=== PATIENT | female | born 1955 | race Caucasian/White ===

== ENCOUNTER → 2017-03-23 07:23 | Outpatient (CLI) | payer OTHER, SELFPAY ==
--- NOTE | 2017-03-23 07:26 | CT_ITS ---
STUDY: CT ABDOMEN AND PELVIS WITHOUT CONTRAST REASON FOR EXAM: Female, 61 years old. History of right hydronephrosis with hematuria and right upper quadrant pain. RADIATION DOSAGE (If Supplied By Facility): CTDIvol = ( 15.57 ) mGy, DLP = ( 770.01 ) mGycm TECHNIQUE: Transaxial images were obtained from the dome of the diaphragm to the symphysis pubis without oral contrast, and without intravenous contrast. Sagittal and coronal images were reconstructed. Individualized dose optimization techniques were used for this CT. COMPARISON: Comparison is made with prior study dated February 25, 2007. FINDINGS: Minimal increased linear markings in the anterior aspect of the right middle lobe suggestive of linear scarring. The visualized portions of the heart are within normal limits. Normal liver. The cyst seen in the right lobe of liver on ultrasound is not well seen on the unenhanced scan. Normal gallbladder and extrahepatic biliary system. Normal spleen. Normal pancreas. Normal bilateral adrenal glands. There are multiple right intrarenal calculi. The largest is in the lower pole and it measures 6.2 mm. Mild degree of right hydronephrosis. Normal left kidney. Normal visualized stomach. Normal small intestine. There are multiple colonic diverticula consistent with diverticulosis. The patient is status post appendectomy. There is scattered atherosclerotic calcification of the abdominal aorta, without a demonstrated aneurysm. Normal inferior vena cava. Normal retroperitoneum. Normal urinary bladder. Normal abdominal wall. There are degenerative changes of the visualized lumbar spine. Grade 1 anterior listhesis of L4 on L5. CT/Abdomen/Pelvis without Cont IMPRESSION: Nonobstructive right intrarenal calculi. Mild right hydronephrosis. Electronically Signed: Angelo Kwong MD at 10:35 EST Tel [phone], Service support ,
== END ==
PROVIDERS: Family Provider Internal Medicine; PCP Internal Medicine; Visit Provider Nurse Practitioner Adult Health
DX: N13.30 Unspecified hydronephrosis (principal); Z87.19 Personal history of other diseases of the digestive system
CPT/HCPCS: 74176

== ENCOUNTER 2017-04-03 08:41 | Day surgery (SDC) | payer OTHER, SELFPAY ==
[2017-04-03 09:05] VITALS: BP 156/92; PULSE 89; RESP 20; TEMP 37.3; O2SAT 97; BMI 31.0
--- NOTE | 2017-04-03 11:28 | PCM.DC.URO ---
Discharge Diet: Light diet - advance as tolerated Discharge Activity: Return to Normal Activity Suture Line Care: Avoid Pulling/Pushing, Avoid Pinching/Bending Allergies/Adverse Reactions: Allergies adhesive tape Allergy (Verified 03/27/17 09:12) Rash diphenhydramine [From Benadryl] Allergy (Verified 03/27/17 09:22) Angioedema famotidine [From Pepcid] Allergy (Verified 03/27/17 09:22) Anaphylaxis Penicillins Allergy (Verified 03/27/17 09:12) Rash pineapple Allergy (Verified 03/27/17 09:12) Hives ranitidine [From Zantac] Allergy (Verified 03/27/17 09:22) Anaphylaxis sucralfate [From Carafate] Allergy (Verified 03/27/17 09:22) Anaphylaxis hydrocodone Adverse Reaction (Verified 03/27/17 09:12) Other CRIES, EMOTIONAL hydromorphone [From Dilaudid] Adverse Reaction (Verified 03/27/17 09:12) Vomiting Medications to take at Discharge Ibuprofen [Motrin] 400 mg PO DAILY 03/27/17 Ibuprofen [Motrin] 400 mg PO Q4H PRN PRN #14 tab 04/03/17 The following prescriptions were given: Ibuprofen [Motrin] 400 mg PO Q4H PRN PRN #14 tab PRN Reason: Pain Primary Care Physician: Yamile Paul DO [Primary Care Provider] - Please Follow Up With: Chidi Oropeza MD When: please call to make an appointment.
--- NOTE | 2017-04-03 12:31 | PCM.OPRPT ---
Problem List (1) Right kidney stone Status: Acute Report of Operation Date of Procedure: 04/03/17 Pre-Operative Diagnosis: Right kidney stone Post-Operative Diagnosis: Same Surgery/Procedure Performed:: Right extracorporeal shockwave lithotripsy Description of Surgical Findings:: 61-year-old female taken back to the operating room at the smooth induction of general anesthesia she was placed supine on the operating room table we then localize the stone in the F2 focal point of the machine and proceeded with shockwave lithotripsy. Patient was given a total of 3000 shockwaves power from 3-5 and the stone was monitored during the entire treatment and in the beginning of the treatment stone broke up and at the end of the treatment the stone broke up fairly well. No stent was placed. Patient's anesthetic was reversed and she is taken back to the PACU in good condition. Type of Anesthesia:: General Drains: none - Admit VTE Documentation VTE Present on Admission: No VTE Mechan Device Prophylaxis: SCD's VTE Pharm Prophylaxis ordered?: No Reason prophylaxis not ordered:: Treatment Not Indicated
[2017-04-03 12:41] VITALS: BP 132/81; BP 156/92; PULSE 87; RESP 16; TEMP 36.1; O2SAT 94
[2017-04-03 13:09] VITALS: BP 151/85; BP 156/92; PULSE 75; RESP 16; TEMP 36.1; O2SAT 97
[2017-04-03 14:19] VITALS: BP 156/92
== END 2017-04-03 14:22 | disposition home or self-care (01) ==
LOC: SDC 08:42 → AC 08:44
PROVIDERS: Family Provider Internal Medicine; PCP Internal Medicine; Visit Provider Urology
PROC: (CPT 50590; principal; 2017-04-03 10:30)
DX: N13.2 Hydronephrosis with renal and ureteral calculous obstruction (principal); I10 Essential (primary) hypertension; G47.30 Sleep apnea, unspecified; Z78.0 Asymptomatic menopausal state; Z87.442 Personal history of urinary calculi; Z87.440 Personal history of urinary (tract) infections; Z87.19 Personal history of other diseases of the digestive system; Z98.51 Tubal ligation status
CPT/HCPCS: 00873; 50590; J7120; J2405

== ENCOUNTER → 2017-04-21 08:57 | Outpatient (CLI) | payer OTHER, SELFPAY ==
--- NOTE | 2017-04-21 09:01 | RAD_ITS ---
STUDY: X-RAY - ABDOMEN/PELVIS REASON FOR EXAM: Female, 62 years old. Right sided kidney stones. Recent lithotripsy. TECHNIQUE: Two AP supine views of the abdomen and pelvis. COMPARISON: Comparison is made with prior study dated June 27, 2014. FINDINGS: Normal visualized lung bases. There is a moderate amount of colonic fecal material. Fragmented calculus is seen in the lower pole calyx of the right kidney. There are calcified phleboliths in the pelvis. Normal visualized osseous structures. RAD/Abdomen Single View IMPRESSION: The previously seen calculus in the lower pole of the right kidney is fragmented at this time. Electronically Signed: Angelo Kwong MD at 15:43 EST Tel [phone], Service support ,
[2017-04-30 12:08] LABS: Ca Oxalate, Monohydrate 95 % (.)
== END ==
PROVIDERS: Family Provider Internal Medicine; PCP Internal Medicine; Visit Provider Urology
DX: N20.2 Calculus of kidney with calculus of ureter (principal); R30.0 Dysuria
CPT/HCPCS: 74018; 82360

== ENCOUNTER → 2017-12-25 10:10 | Outpatient (CLI) | payer OTHER, SELFPAY ==
--- NOTE | 2017-12-25 10:25 | RAD_ITS ---
STUDY: X-RAY - ABDOMEN/PELVIS REASON FOR EXAM: Female, 62 years old. Right flank pain TECHNIQUE: 2 views COMPARISON: None. FINDINGS: Normal visualized lung bases. There is an unremarkable bowel gas pattern. There is no demonstrated free abdominal air. There are numerous small calcific densities over the right renal status suspicious for calculi. Probable phleboliths in the pelvis. Normal soft tissue structures. Normal visualized osseous structures. RAD/Abdomen Single View IMPRESSION: Possible calculi in the right kidney. Please correlate with ultrasound or CT if needed. Electronically Signed: Remberto Avendano DO at 9:17 EST Tel [phone], Service support ,
== END ==
PROVIDERS: Family Provider Internal Medicine; PCP Internal Medicine; Referring Provider Urology; Visit Provider Urology
DX: N20.0 Calculus of kidney (principal)
CPT/HCPCS: 74018

== ENCOUNTER → 2018-09-30 12:51 | Outpatient (CLI) | payer OTHER, SELFPAY ==
--- NOTE | 2018-09-30 13:00 | RAD_ITS ---
STUDY: X-RAY - ABDOMEN/PELVIS REASON FOR EXAM: Female, 63 years old. Dysuria. TECHNIQUE: Single AP view of the abdomen / pelvis. COMPARISON: None. FINDINGS: Normal visualized lung bases. There is an unremarkable bowel gas pattern. There is no demonstrated free abdominal air. The visualized liver, spleen and kidneys are grossly normal in size and morphology. There are calcified phleboliths in the pelvis. Normal visualized osseous structures. RAD/Abdomen Single View IMPRESSION: Normal x-ray examination of the abdomen and pelvis. Electronically Signed: Gianfranco Dang MD at 13:25 EDT , Service support ,
== END ==
PROVIDERS: Family Provider Internal Medicine; PCP Internal Medicine; Referring Provider Urology; Visit Provider Urology
DX: N20.0 Calculus of kidney (principal)
CPT/HCPCS: 74018

== ENCOUNTER → 2018-10-19 11:14 | Outpatient (CLI) | payer OTHER, SELFPAY | PROVIDERS: Family Provider Internal Medicine; PCP Internal Medicine; Referring Provider Nurse Practitioner Adult Health; Visit Provider Nurse Practitioner Adult Health | DX: R30.0 Dysuria (principal) | CPT/HCPCS: 87086; 87088; 87186 ==

== ENCOUNTER → 2019-08-16 14:03 | Outpatient (CLI) | payer OTHER, SELFPAY | PROVIDERS: PCP Internal Medicine; Referring Provider Nurse Practitioner Adult Health; Visit Provider Nurse Practitioner Adult Health | DX: N39.0 Urinary tract infection, site not specified (principal) | CPT/HCPCS: 87086; 87088 ==

== ENCOUNTER 2021-11-06 03:43 | Emergency (ER) | payer OTHER, SELFPAY ==
[2021-11-06 03:43] VITALS: BP 172/101; PULSE 79; RESP 18; TEMP 36.4; O2SAT 97; BMI 35.5
--- NOTE | 2021-11-06 03:46 | CT_ITS ---
EXAM: CT ABDOMEN AND PELVIS WITHOUT INTRAVENOUS CONTRAST CLINICAL INDICATION: Kidney Stone TECHNIQUE: Helically acquired images were obtained of the abdomen and pelvis without intravenous contrast. This CT exam was performed using one or more of the following dose reduction techniques: automated exposure control, adjustment of the mA and/or kV according to patient size, and/or use of iterative reconstruction technique. This report was created using [employer] report generation technology. RADIATION DOSE: Total DLP: 956.13 mGy-cm. COMPARISON: CT of 03/23/2017. FINDINGS: LOWER THORAX: Minimal linear scarring at the lung bases. No pleural effusion. No coronary artery calcification is visualized. BONES: Lower thoracic and lumbar degenerative disc disease. Severe degenerative disc space narrowing with vacuum disc phenomenon, mild endplate sclerosis and marginal osteophytes at L5/S1. Extensive lumbar facet arthritis with slight anterolisthesis of L4 on L5. Thecal sac is effaced with a triangular configuration, measuring about 6 mm in AP diameter, at L4/5 due to the anterolisthesis, annular bulging, facet hypertrophy and ligamentum flavum calcification. Inferior neural foramina are narrowed bilaterally at L4/5 and L5/S1 by broad-based annular bulging, facet hypertrophy and posterolateral osteophytes. ABDOMEN: LIVER: Liver demonstrates fatty infiltration with minimal focal fatty sparing near the gallbladder. Right hepatic lobe measures 17.2 cm in cephalocaudal dimension. GALLBLADDER AND BILE DUCTS: Unremarkable. No calcified gallstones. No gallbladder distention or wall edema. No intra- or extrahepatic biliary ductal dilation. PANCREAS: Unremarkable. No focal cystic mass. SPLEEN: Unremarkable. Normal size without focal cystic or solid mass. ADRENALS: Unremarkable. No nodules. KIDNEYS AND URETERS: Interval development of moderately severe right-sided pelvocaliectasis; moderate right hydroureter is also present, secondary to a 2 mm stone which lies within the distal ureter at the UVJ. A cluster of multiple small calcifications again noted within the dilated right renal lower pole collecting system. The left kidney is unremarkable. No left renal calculi or left-sided hydronephrosis. STOMACH AND BOWEL: Numerous sigmoid diverticula are present without evidence for acute diverticulitis. No distended small bowel loops. Stomach is decompressed. No periduodenal inflammatory changes. PELVIS: APPENDIX: Not well seen. No evidence of acute appendicitis. BLADDER: Urinary bladder is nearly empty. REPRODUCTIVE: Normal size uterus. No adnexal mass. ABDOMEN and PELVIS: INTRAPERITONEAL SPACE: Unremarkable. No ascites or other fluid collection. No free air. SOFT TISSUES: Small fat filled umbilical hernia. VASCULATURE: Minimally calcific abdominal aorta. Abdominal aorta is non-dilated. LYMPH NODES: Unremarkable. No enlarged lymph nodes. CT/Abdomen/Pelvis without Cont IMPRESSION: Moderately severe right hydronephrosis due to a 2 mm stone within the distal ureter at the UVJ. Mildly enlarged and fatty liver. Sigmoid diverticulosis without evidence for acute diverticulitis. Electronically Signed: Mathieu Jimenez MD at 4:40 EDT ,
--- NOTE | 2021-11-06 03:51 | EDS_ITS ---
HPI History of Present Illness Chief Complaint: Flank Pain Detail of Chief Complaint: Right flank pain Informant: patient Onset/Context/Timing Onset: Today Current Severity: Moderate Maximum Severity: Severe Narrative Narrative: Patient present secondary to right flank pain that woke her from sleep at 2 AM this morning. She does have a history of kidney stones with similar pain. She has not yet taken anything for pain. She has required lithotripsy in the past for her stones. [facility] Medical History Kidney stones Home Medications ibuprofen 800 mg tablet 800 mg PO Q8H PRN pain #10 tabs 11/06/21 [Rx Last Taken Unknown] ondansetron 4 mg disintegrating tablet 4 mg PO Q8H PRN nausea and vomiting #10 tabs 11/06/21 [Rx Last Taken Unknown] oxycodone-acetaminophen 5 mg-325 mg tablet (Percocet) 1 tab PO Q6H PRN pain 3 days #10 tabs 11/06/21 [Rx Last Taken Unknown] tamsulosin 0.4 mg capsule (Flomax) 0.4 mg PO DAILY #7 caps 11/06/21 [Rx Last Taken Unknown] Allergy/AdvReac Type Severity Reaction Status Date / Time adhesive tape Allergy Rash Verified 11/06/21 03:43 diphenhydramine Allergy Angioedema Verified 11/06/21 03:43 [From Benadryl] famotidine [From Pepcid] Allergy Anaphylaxis Verified 11/06/21 03:43 Penicillins Allergy Rash Verified 11/06/21 03:43 pineapple Allergy Hives Verified 11/06/21 03:43 ranitidine [From Zantac] Allergy Anaphylaxis Verified 11/06/21 03:43 sucralfate [From Carafate] Allergy Anaphylaxis Verified 11/06/21 03:43 hydrocodone AdvReac Other Verified 11/06/21 03:43 hydromorphone [From Dilaudid] AdvReac Vomiting Verified 11/06/21 03:43 Social History Smoking Status: Never smoker ROS ROS ED Constitutional Constitutional ED: Denies chills or fever(s) Eyes Eyes: Denies change in vision or discharge from eye(s) ENT ENT ED: Denies discharge from eye(s), rhinorrhea or sore throat Cardiovascular Cardiovascular: Denies chest pain or palpitations Respiratory/Chest Respiratory/Chest: Denies cough or dyspnea Gastrointestinal Gastrointestinal: Reports abdominal pain; Denies diarrhea, nausea or vomiting Genitourinary Genitourinary ED: Denies difficulty urinating or dysuria Musculoskeletal Musculoskeletal: Reports back pain; Denies extremity pain Integumentary Denies Abrasions or rash Neurologic Neurologic: Denies headache(s) or weakness Psychiatric Psychiatric: Denies anxiety or depression Allergic/Immunologic Allergic/Immunologic ED: Denies lip swelling or urticaria EXAM Physical Exam Const Vital Signs: 11/06/21 03:43 11/06/21 05:37 Temperature 97.5 F L Temperature Source Temporal Pulse Rate 79 64 Respiratory Rate 18 15 Blood Pressure 172/101 H 174/78 H Blood Pressure Mean 124 110 Pulse Ox 97 98 Oxygen Delivery Method Room Air Room Air Positive well nourished and well developed General Appearance ED: well developed HEENT Reports normocephalic and head/scalp atraumatic Eyes PERRL and EOMs intact bilaterally Neck supple Chest Wall inspection of chest normal and palpation of chest normal Resp normal respiratory effort and clear to auscultation bilaterally Cardio regular rate and regular rhythm GI non-tender Auscultation: hypoactive bowel sounds Palpation: soft Back/Spine General Back: CVA tenderness right Extremity normal to inspection Neuro oriented x3 and no sensory deficits noted Sensorium / Orientation: alert Motor Exam: strength 5/5 throughout Psych mental status grossly normal Skin no rashes or lesions noted MDM MDM MDM Narrative Medical decision making narrative: Patient was given Toradol, Zofran, morphine, IV fluids. Lab work, urinalysis, CT flank obtained. Lab Data Attestation: I reviewed the patient's lab results. Labs: Laboratory Results - last 24 hr 11/06/21 11/06/21 11/06/21 01:40 01:40 01:40 WBC 6.0 RBC 5.08 Hgb 15.5 H Hct 46.7 MCV 91.9 MCH 30.5 MCHC 33.2 RDW Std Deviation 45.2 H RDW Coeff of Betty 13.2 Plt Count 226 MPV 12.3 H Immature Gran % (Auto) 0.200 Neut % (Auto) 40.1 L Lymph % (Auto) 46.1 H [place] % (Auto) 9.7 Eos % (Auto) 2.2 Baso % (Auto) 1.7 H Absolute Neuts (auto) 2.4 Absolute Lymphs (auto) 2.76 Nucleated RBC % 0 Sodium 139 Potassium 4.1 Chloride 105 Carbon Dioxide 25.0 Anion Gap 9 BUN 16 Creatinine 0.94 Estim Creat Clear Calc 57.25 Est GFR (MDRD) Af Amer 77 Est GFR (MDRD) Non-Af 63 BUN/Creatinine Ratio 17.1 Glucose 111 H Calcium 9.3 Urine Color Straw Urine Clarity Clear Urine pH 7.0 Ur Specific [place] 1.010 Urine Protein Negative Urine Glucose (UA) Normal Urine Ketones Negative Urine Occult Blood Negative Urine Nitrite Negative Urine Bilirubin Negative Urine Urobilinogen Normal Ur Leukocyte Esterase 100 H Urine RBC 0 SEEN Urine WBC 5-10 SEEN Ur Squamous Epith Cells 0 SEEN Ur Transition Epith Cell 0-5 SEEN Ur Renal Epithelial Cell 0-5 SEEN Urine Bacteria RARE Urine Mucus 0 SEEN Radiography Diagnostic Testing: Clinical Impression(s) from Imaging Studies Abdomen/Pelvis CT 11/06/21 03:46 IMPRESSION: Moderately severe right hydronephrosis due to a 2 mm stone within the distal ureter at the UVJ. Mildly enlarged and fatty liver. Sigmoid diverticulosis without evidence for acute diverticulitis. Electronically Signed: Mathieu Jimenez MD at 4:40 EDT , Treatment and Re-Evaluation Narrative: Patient's pain did improve but did recur. She was given a second round of pain medication along with a dose of Flomax. CBC and chemistry studies unremarkable. Renal function is normal. Urinalysis reveals 5-10 white cells with no sign of infection. CT scan of the flank reveals moderately severe right hydronephrosis with a 2 mm stone in the distal ureter at the UVJ. At this time patient's pain is improved but she does still have waves of spasm. She will be given presc riptions for Percocet, Zofran, ibuprofen, Flomax. She will follow-up with Dr. Oropeza who she has seen in the past. Return instructions are also provided. Discharge Plan Triage Chief Complaint: Flank Pain ED Provider: Gina Cancino Dx/Rx/DC Orders Clinical Impression: Right kidney stone Instructions: ED Kidney Stone w/ Colic Prescriptions: New ibuprofen 800 mg tablet 800 mg PO Q8H PRN (Reason: pain) Qty: 10 0RF oxycodone-acetaminophen [Percocet] 5-325 mg tablet 1 tab PO Q6H PRN (Reason: pain) 3 Days Qty: 10 0RF ondansetron 4 mg tablet,disintegrating 4 mg PO Q8H PRN (Reason: nausea and vomiting) Qty: 10 0RF tamsulosin [Flomax] 0.4 mg capsule 0.4 mg PO DAILY Qty: 7 0RF Primary Care Provider: Yamile Paul Referrals: Chidi Oropeza MD [Med Staff - Active Staff] - 3-5 Days if not improving Yamile Paul DO [Primary Care Provider] - Disposition Disposition: Home, Self Care
[2021-11-06] MEDS: 0.9% Normal Saline 1,000 ML 250 ML IV (03:59)
[2021-11-06] MEDS: Morphine 4 MG/ML Syringe IV ×2 (03:59→05:32)
[2021-11-06] MEDS: Ondansetron 4 MG/2 ML Vial IV ×2 (03:59→05:31)
[2021-11-06] MEDS: Ketorolac 30 MG/ML Syringe IV (03:59)
[2021-11-06 04:07] LABS: Mucous, Urine 0 SEEN /hpf (<or=2+); Red Blood Cells-Urine 0 SEEN /hpf (0-5); Squamous Epithelial Cells - UA 0 SEEN /hpf (5-10)
[2021-11-06 04:10] LABS: Color, Urine Straw (Yellow); Glucose, Dipstick Normal (Normal); Ketone-Dipstick Negative (Negative); Leukocyte Esterase-Dipstick 100 /ul (Negative); Nitrite-Dipstick Negative (Negative); Occult Blood-Urine Negative /ul (Negative); Protein-Dipstick Negative (Negative); Urine Bilirubin Dipstick Negative (Negative); Urine Clarity Clear (Clear); Urine Urobilinogen Normal (Normal)
[2021-11-06 04:11] LABS: Absolute Lymphocyte Count 2.76 X10^3/uL (0.83-4.51); Absolute Neutrophil Count 2.4 X10^3/uL (2.0-7.7); Basophil% 1.7 % (0-1); Eosinophil# 0.13 X10^3/uL; Eosinophils% 2.2 % (0-5); Hematocrit 46.7 % (37-47); Hemoglobin 15.5 g/dL (12.0-15.0); Lymphocyte # 2.76 X10^3/ul (0.83-4.51); Lymphocyte % 46.1 % (19-41); Mean Corp Hgb Conc 33.2 g/dL (32-36); Mean Corpuscular Hgb 30.5 pg (27.0-32.0); Mean Corpuscular Volume 91.9 fL (81-99); Mean Platelet Vol. 12.3 fl (6.2-12.0); Monocyte# 0.58 X10^3/uL; Monocyte% 9.7 % (0-10); NRBC Flagged by Analyzer 0 % (0-5); Neutrophil # 2.41 X10^3/uL (2.7-7.7); Neutrophil % 40.1 % (47-70); Platelet Count 226 K/mm3 (150-450); RBC Distribution Width CV 13.2 % (11.6-14.6); RBC Distribution Width SD 45.2 fl (35.1-43.9); Red Blood Count 5.08 M/mm3 (4.2-5.4)
[2021-11-06 04:26] LABS: Anion Gap 9 (5-15); BUN 16 mg/dL (7-18); BUN/Creat Ratio 17.1 RATIO (10-20); Calcium,Total 9.3 mg/dL (8.5-10.1); Chloride 105 mmol/L (98-107); Creatinine, Serum 0.94 mg/dL (0.55-1.02); EST Glomerular Filtration Rate 63 mL/min (>60); Est Glom Filt Rate - Afr Amer 77 mL/min (>60); Estimated Creatinine Clearance 57.25 ml/min; Glucose 111 mg/dL (74-106); Potassium 4.1 mmol/L (3.5-5.1); Sodium Level 139 mmol/L (136-145)
[2021-11-06 04:38] LABS: Bacteria RARE /hpf (None Seen); Renal Epithelial Cells 0-5 SEEN /hpf (0-5); Transitional Epithelial - Ur 0-5 SEEN /hpf (0-5); White Blood Cells 5-10 SEEN /hpf (0-5)
[2021-11-06] MEDS: Tamsulosin HCl 0.4 MG Capsule PO (05:08)
[2021-11-06 05:37] VITALS: BP 174/78; PULSE 64; RESP 15; O2SAT 98
[2021-11-06 07:02] VITALS: BP 174/78; PULSE 64; RESP 15; O2SAT 98
== END 2021-11-06 07:04 | disposition home or self-care (01) ==
PROVIDERS: Emergency Provider Emergency Medicine; PCP Internal Medicine; Visit Provider Emergency Medicine
DX: N13.2 Hydronephrosis with renal and ureteral calculous obstruction (principal); Z79.899 Other long term (current) drug therapy; Z87.442 Personal history of urinary calculi
CPT/HCPCS: 74176; 80048; 81001; 85025; 96361; 96374; 96375; 96376; 99283; J7030; A4216; J2405

== ENCOUNTER → 2022-01-28 | Outpatient (CLI) | payer OTHER, SELFPAY ==
--- NOTE | 2022-01-28 07:42 | MRI_ITS ---
STUDY: MRI BRAIN WITH AND WITHOUT CONTRAST (ATTENTION INTERNAL AUDITORY CANALS - I.A.C.''s) REASON FOR EXAM: Female, 66 years old. R TINNITUS TECHNIQUE: Standardized multiplanar fat and water weighted pulse sequences were obtained. IV Yes YES was administered for the contrast portion of the examination. COMPARISON: None. FINDINGS: Normal bilateral temporal bones. Normal bilateral internal auditory canals. There is no demonstrated intracanalicular or cisternal vestibular schwannoma (acoustic neuroma). There is no enhancement of the bilateral VIIth or VIIIth cranial nerves. Normal bilateral cochlea, vestibules and semicircular canals. Normal size of the ventricles and extra-axial spaces for the patient''s age. There is minimal periventricular white matter disease likely due to chronic small vessel ischemic changes without evidence for acute infarct.. Normal bilateral basal ganglia. Normal thalami. Normal flow voids within the major intracranial circulation suggesting patency by spin echo criteria. Normal venous enhancement. There is no enhancing intra-axial or extra-axial abnormality. There is no extra-axial fluid accumulation. Normal sella turcica, pituitary gland, infundibular stalk, optic chiasm and hypothalamus. Normal tectal plate and pineal gland. Normal midbrain, angelo and medulla. Normal cerebellum. Normal basal cisterns. No demonstrated orbital abnormality, within the constraints of a routine brain study. Normal visualized paranasal sinuses. Normal calvarium and skull base. Normal visualized soft tissue structures. Normal visualized upper cervical spine. MRI/Brain W/WO Contrast IMPRESSION: Minimal periventricular white matter ischemic changes. No evidence for acute infarct.). No evidence for acoustic or vestibular schwannoma. Electronically Signed: Chente Nicholas MD at 16:24 EST Reading Location ID and State: [facility] / [place] , Service support ,
== END | disposition home or self-care (01) ==
LOC: MRI 07:13
PROVIDERS: PCP Internal Medicine; Referring Provider Otolaryngology; Visit Provider Otolaryngology
DX: H93.11 Tinnitus, right ear (principal)
CPT/HCPCS: 70553; A9575

== ENCOUNTER 2024-03-21 03:12 | Emergency (ER) | payer MEDICARE, OTHER, SELFPAY ==
[2024-03-21 03:12] VITALS: BP 206/99; PULSE 91; RESP 18; TEMP 36.4; O2SAT 98; BMI 34.2
--- NOTE | 2024-03-21 03:26 | EDS_ITS ---
HPI History of Present Illness Chief Complaint: Flank Pain Informant: patient Onset/Context/Timing Onset: Today Context: Sudden Onset Timing: Continuous Quality: Burning Location: Right lower abdomen Worsened by: Nothing Relieved by: Nothing Narrative Narrative: Patient presents with right flank pain that began today. Patient states it started in the right upper flank area and now is in the right lower abdomen. Patient states that over the past few days she felt like she was getting a urinary tract infection. Patient describes her pain as burning. Patient states nothing makes it worse and nothing makes it better. Patient admits to some nausea but denies any vomiting. Patient admits to some dysuria but denies any hematuria or frequency. Patient denies any fevers or chills. Patient states she has had multiple kidney stones in the past and has had lithotripsy for them. PFSH PFSH Medical History Hx of thoracic outlet syndrome Kidney stones Home Medications ?Medication ?Instructions ?Recorded ?Last Taken ?Type etodolac 500 mg tablet 500 mg PO BID PRN pain #40 tabs 06/18/22 Unknown Rx ibuprofen 200 mg tablet 200 mg PO Q6H PRN 06/18/22 Unknown History ciprofloxacin HCl 500 mg tablet 500 mg PO BID #14 TABLETS 03/21/24 Unknown Rx tramadol 50 mg tablet 50 mg PO Q4H PRN PRN Pain 3 days 03/21/24 Unknown Rx #20 tabs Allergy/AdvReac Type Severity Reaction Status Date / Time diphenhydramine (From Allergy Angioedema Verified 03/21/24 03:13 Benadryl) famotidine (From Pepcid) Allergy Anaphylaxis Verified 03/21/24 03:13 Penicillins Allergy Rash Verified 03/21/24 03:13 pineapple Allergy Hives Verified 03/21/24 03:13 ranitidine (From Zantac) Allergy Anaphylaxis Verified 03/21/24 03:13 sucralfate (From Carafate) Allergy Anaphylaxis Verified 03/21/24 03:13 hydrocodone AdvReac Other Verified 03/21/24 03:13 hydromorphone (From Dilaudid) AdvReac Vomiting Verified 03/21/24 03:13 Surgical History Hx of arthroscopy of left knee Hx of appendectomy Hx of section Social History Smoking Status: Never smoker ROS ROS ED Constitutional Constitutional ED: Denies chills or fever(s) Eyes Eyes: Denies blurry vision or change in vision ENT ENT ED: Denies rhinorrhea or sore throat Cardiovascular Cardiovascular: Denies chest pain or palpitations Respiratory/Chest Respiratory/Chest: Denies cough or dyspnea Gastrointestinal Gastrointestinal: Reports nausea; Denies vomiting Genitourinary Genitourinary ED: Reports dysuria; Denies hematuria Musculoskeletal Musculoskeletal: Denies back pain or neck pain Integumentary Denies abscess or rash Neurologic Neurologic: Reports headache(s); Denies weakness Allergic/Immunologic Allergic/Immunologic ED: Denies mouth swelling or urticaria EXAM Physical Exam Const Vital Signs: 03/21/24 03:12 Temperature 97.6 F L Temperature Source Oral Pulse Rate 91 Respiratory Rate 18 Blood Pressure 206/99 H Blood Pressure Mean 134 Pulse Ox 98 Oxygen Delivery Method Room Air Positive well nourished and well developed General Appearance ED: well developed and NAD HEENT Reports moist mucous membranes Neck supple and no JVD Resp normal respiratory effort and clear to auscultation bilaterally Cardio regular rate and regular rhythm GI non-distended Palpation: soft and tender RLQ and Rovsing's sign (Negative); Negative for guarding or rebound tenderness present Back/Spine no CVA tenderness Neuro oriented x3, CN's II-XII intact bilaterally and no sensory deficits noted Sensorium / Orientation: alert Motor Exam: strength 5/5 throughout Psych mental status grossly normal MDM MDM MDM Narrative Medical decision making narrative: Differential diagnose includes ureteral calculus, pyelonephritis, appendicitis, gastroenteritis, mesenteric adenitis, urinary tract infection, and ovarian cyst. CBC will be obtained to assess for leukocytosis and anemia. Basic metabolic profile will be obtained to assess for electrolyte abnormality renal function. Urinalysis will be obtained to assess for urinary tract infection and hematuria. CT scan of the abdomen and pelvis will be obtained to assess for appendicitis, ureteral calculus, ovarian cyst, and mesenteric adenitis. Lab Data Attestation: I reviewed the patient's lab results. Lab results narrative: CBC was reviewed and was essentially within normal limits. Basic metabolic profile was reviewed and was within normal limits. Urinalysis was reviewed. Leukocyte esterase was 100 with 25-50 white blood cells. There is rare bacteria. There are 5-10 epithelial cells. Labs: Laboratory Results - last 24 hr 03/21/24 03/21/24 03:25 03:30 WBC 6.7 RBC 5.32 Hgb 15.8 H Hct 46.7 MCV 87.8 MCH 29.7 MCHC 33.8 RDW Std Deviation 43.6 RDW Coeff of Betty 13.5 Plt Count 185 MPV 12.0 Immature Gran % (Auto) 0.100 Neut % (Auto) 47.0 Lymph % (Auto) 37.1 [place] % (Auto) 9.6 Eos % (Auto) 4.3 Baso % (Auto) 1.9 H Absolute Neuts (auto) 3.1 Absolute Lymphs (auto) 2.48 Nucleated RBC % 0 Sodium 139 Potassium 4.1 Chloride 104 Carbon Dioxide 26.0 Anion Gap 9 BUN 14 Creatinine 0.89 Estim Creat Clear Calc 71.72 Est GFR (MDRD) Af Amer 81 Est GFR (MDRD) Non-Af 67 BUN/Creatinine Ratio 15.7 Glucose 107 H Calcium 9.4 Urine Color Straw Urine Clarity Clear Urine pH 7.0 Ur Specific [place] 1.005 Urine Protein Negative Urine Glucose (UA) Normal Urine Ketones Negative Urine Occult Blood 10 H Urine Nitrite Negative Urine Bilirubin Negative Urine Urobilinogen Normal Ur Leukocyte Esterase 100 H Urine RBC 0 SEEN Urine WBC 25-50 SEEN Ur Squamous Epith Cells 5-10 SEEN Urine Bacteria RARE Urine Mucus RARE Radiography Diagnostic Testing: Clinical Impression(s) from Imaging Studies Abdomen/Pelvis CT 03/21/24 03:38 IMPRESSION: 4 mm stone in the distal right ureter, at the ureterovesical junction, with moderate right hydronephrosis. Electronically Signed: Chente Nagy DO at 5:39 EST , CT scan of the abdomen and pelvis was obtained. There is right hydronephrosis and hydroureter due to a distal ureteral calculus measuring approximately 4 mm. This was interpreted by the radiologist was also independently reviewed by myself. Additional Tests and Interventions Additional Tests or Interventions: Urine culture was ordered. Treatment and Re-Evaluation :: Patient was given IV fluids, morphine, and Zofran. Patient was given a dose of Cipro here. Patient was given a prescription for Cipro. Patient was also given a prescription for a short course of tramadol. Patient was instructed to drink plenty of fluids. Patient was instructed to follow-up with her primary care physician in 5 to 7 days. Patient was also instructed to follow-up with her urologist, Dr. Oropeza in 3 to 5 days. Patient was instructed to return if worse in any way. Patient understood and was agreeable with the plan. All questions were answered. Discharge Plan Triage Chief Complaint: Flank Pain ED Provider: Fahad Thompson Dx/Rx/DC Orders Clinical Impression: Calculus of distal right ureter, Urinary tract infection Instructions: ED Kidney Stone with Pain Prescriptions: New ciprofloxacin HCl 500 mg tablet 500 mg PO BID Qty: 14 0RF tramadol 50 mg tablet 50 mg PO Q4H PRN PRN (Reason: Pain) 3 Days Qty: 20 0RF No Action ibuprofen 200 mg tablet 200 mg PO Q6H PRN etodolac 500 mg tablet 500 mg PO BID PRN (Reason: pain) Qty: 40 0RF Rx Instructions: Do not take in conjunction with other NSAIDs such as ibuprofen. Tylenol is okay Primary Care Provider: Yamile Paul Referrals: Chidi Oropeza MD [Med Staff - Active Staff] - 3-5 Days Yamile Paul DO [Primary Care Provider] - 5-7 Days Print Language: German Disposition Disposition: Home, Self Care
--- NOTE | 2024-03-21 03:38 | CT_ITS ---
INDICATION: Right flank pain EXAMINATION: CT Abdomen And Pelvis W/O Contrast Injection TECHNIQUE: Helically acquired images were obtained of the abdomen and pelvis with sagittal and coronal reconstructed images. Individualized dose optimization techniques were used for this CT. IV contrast dosage and agent: None. Oral contrast: None. COMPARISON: 11/06/2021 CT. FINDINGS: VESSELS: No abdominal aortic aneurysm. LIVER: No intrahepatic or extrahepatic biliary duct dilation. GALLBLADDER: No calcified stones. No evidence of cholecystitis. PANCREAS: No evidence of a mass. No evidence of pancreatitis. SPLEEN: Normal. ADRENAL GLANDS: Normal. KIDNEYS AND URETERS: Right renal stones. Moderate right hydronephrosis and hydroureter. 4 mm stone in the distal right ureter, at the ureterovesical junction. No left-sided urinary tract stone or obstruction. URINARY BLADDER: Unremarkable. BOWEL: Diverticulosis with no evidence of diverticulitis. Appendix not identified. No evidence of bowel obstruction. REPRODUCTIVE ORGANS: Unremarkable. PERITONEUM: No intraabdominal free fluid or free air. LYMPH NODES: No pathologically enlarged mesenteric or retroperitoneal lymph nodes. ABDOMINAL WALL: No abdominal or pelvic wall hernia. BONES: No acute abnormality. LOWER CHEST: Visualized lung bases are unremarkable. CT/Abdomen/Pelvis without Cont IMPRESSION: 4 mm stone in the distal right ureter, at the ureterovesical junction, with moderate right hydronephrosis. Electronically Signed: Chente Nagy DO at 5:39 EST ,
[2024-03-21 03:51] LABS: Red Blood Cells-Urine 0 SEEN /hpf (0-5)
[2024-03-21 03:52] LABS: Color, Urine Straw (Yellow); Glucose, Dipstick Normal (Normal); Ketone-Dipstick Negative (Negative); Leukocyte Esterase-Dipstick 100 /ul (Negative); Nitrite-Dipstick Negative (Negative); Occult Blood-Urine 10 /ul (Negative); Protein-Dipstick Negative (Negative); Specific Gravity, Urine 1.005 (1.002-1.030); Urine Bilirubin Dipstick Negative (Negative); Urine Clarity Clear (Clear); Urine Urobilinogen Normal (Normal)
[2024-03-21 03:59] LABS: Absolute Lymphocyte Count 2.48 X10^3/uL (0.83-4.51); Absolute Neutrophil Count 3.1 X10^3/uL (2.0-7.7); Basophil# 0.13 X10^3/uL; Basophil% 1.9 % (0-1); Eosinophil# 0.29 X10^3/uL; Eosinophils% 4.3 % (0-5); Hematocrit 46.7 % (37-47); Hemoglobin 15.8 g/dL (12.0-15.0); Lymphocyte # 2.48 X10^3/ul (0.83-4.51); Lymphocyte % 37.1 % (19-41); Mean Corp Hgb Conc 33.8 g/dL (32-36); Mean Corpuscular Hgb 29.7 pg (27.0-32.0); Mean Corpuscular Volume 87.8 fL (81-99); Monocyte# 0.64 X10^3/uL; Monocyte% 9.6 % (0-10); NRBC Flagged by Analyzer 0 % (0-5); Neutrophil # 3.14 X10^3/uL (2.7-7.7); Platelet Count 185 K/mm3 (150-450); RBC Distribution Width CV 13.5 % (11.6-14.6); RBC Distribution Width SD 43.6 fl (35.1-43.9); Red Blood Count 5.32 M/mm3 (4.2-5.4); White Blood Count 6.7 K/mm3 (4.4-11.0)
[2024-03-21] MEDS: 0.9% Normal Saline (1000mL) 1,000 ML 1000 ML IV (04:08)
[2024-03-21] MEDS: Morphine 4 MG/ML Syringe IV (04:08)
[2024-03-21] MEDS: Ondansetron 4 MG/2 ML Vial IV (04:08)
[2024-03-21 04:11] LABS: Bacteria RARE /hpf (None Seen); Mucous, Urine RARE /hpf (<or=2+); Squamous Epithelial Cells - UA 5-10 SEEN /hpf (5-10); White Blood Cells 25-50 SEEN /hpf (0-5)
[2024-03-21 04:33] LABS: Anion Gap 9 (5-15); BUN 14 mg/dL (7-18); BUN/Creat Ratio 15.7 RATIO (10-20); Calcium,Total 9.4 mg/dL (8.5-10.1); Chloride 104 mmol/L (98-107); Creatinine, Serum 0.89 mg/dL (0.55-1.02); EST Glomerular Filtration Rate 67 mL/min (>60); Est Glom Filt Rate - Afr Amer 81 mL/min (>60); Estimated Creatinine Clearance 71.72 ml/min; Glucose 107 mg/dL (74-106); Potassium 4.1 mmol/L (3.5-5.1); Sodium Level 139 mmol/L (136-145)
[2024-03-21 05:12] VITALS: BP 168/84; PULSE 71; RESP 16; O2SAT 98
[2024-03-21] MEDS: Ciprofloxacin 500 MG Tablet PO (06:01)
[2024-03-21 06:05] VITALS: BP 168/84; PULSE 71; RESP 16; TEMP 36.8; O2SAT 98
== END 2024-03-21 06:14 | disposition home or self-care (01) ==
PROVIDERS: Emergency Provider Emergency Medicine; PCP Internal Medicine; Visit Provider Emergency Medicine
DX: N13.6 Pyonephrosis (principal); R11.0 Nausea; R51.9 Headache, unspecified; Z79.899 Other long term (current) drug therapy
CPT/HCPCS: 74176; 80048; 81001; 85025; 96361; 96374; 96375; 99282; A4216; J2405

== ENCOUNTER 2025-01-28 18:49 | Emergency (ER) | payer MEDICARE, OTHER, SELFPAY ==
[2025-01-28 18:50] VITALS: BP 222/110; PULSE 116; RESP 18; TEMP 36.6; O2SAT 96; BMI 34.0
[2025-01-28 18:52] VITALS: BP 204/106; PULSE 112; RESP 16; O2SAT 100
--- NOTE | 2025-01-28 18:56 | EDS_ITS ---
HPI History of Present Illness Chief Complaint: Lower Extremity Injury Informant: patient and spouse/S.O. Narrative Narrative: Patient is a 69-year-old female who reports no significant past medical history. She states roughly 2 weeks ago she was using a hard small medicine ball to roll out her low back and left thigh. She states that after using this she then noticed that the area was red swollen and painful. She states that over the past 2 weeks the area has changed colors and also changed in size. She denies any repeat trauma. She denies any history of bleeding disorder or blood thinner use. She states there is no chest pain or shortness of breath. She states that as the area has not returned to normal color after the past 2 weeks she presents for evaluation [facility] Medical History Hx of thoracic outlet syndrome Kidney stones Home Medications ?Medication ?Instructions ?Recorded ?Last Taken ?Type magnesium citrate 100 mg capsule 100 mg PO QDAY 01/28/25 History doxycycline monohydrate 100 mg 100 mg PO BID 7 days #1 4 CAPSULES 01/28/25 Unknown Rx capsule ondansetron 4 mg disintegrating 4 mg PO TID PRN nausea and 01/28/25 Unknown Rx tablet vomiting #21 tabs Allergy/AdvReac Type Severity Reaction Status Date / Time diphenhydramine (From Allergy Angioedema Verified 01/28/25 18:50 Benadryl) famotidine (From Pepcid) Allergy Anaphylaxis Verified 01/28/25 18:50 Penicillins Allergy Rash Verified 01/28/25 18:50 pineapple Allergy Hives Verified 01/28/25 18:50 ranitidine (From Zantac) Allergy Anaphylaxis Verified 01/28/25 18:50 sucralfate (From Carafate) Allergy Anaphylaxis Verified 01/28/25 18:50 hydrocodone AdvReac Other Verified 01/28/25 18:50 hydromorphone (From Dilaudid) AdvReac Vomiting Verified 01/28/25 18:50 Family History no significant family his Surgical History Hx of arthroscopy of left knee Hx of appendectomy Hx of section Social History Smoking Status: Never smoker ROS ROS ED Constitutional Constitutional ED: Denies chills or fever(s) Cardiovascular Cardiovascular: Denies chest pain, palpitations or racing heartbeat Respiratory/Chest Respiratory/Chest: Denies cough or dyspnea Gastrointestinal Gastrointestinal: Denies abdominal pain, diarrhea, nausea or vomiting Musculoskeletal Musculoskeletal: Reports other Details: Positive left thigh pain ; Denies myalgias Integumentary Reports other Details: Positive redness/discoloration left thigh Neurologic Neurologic: Denies headache(s) or paresthesias Hematologic/Lymphatic Hematologic/Lymphatic: Denies easy bleeding or easy bruising EXAM Physical Exam Const Vital Signs: 01/28/25 18:50 01/28/25 18:52 01/28/25 19:26 Temperature 97.8 F 98.3 F Temperature Source Oral Pulse Rate 116 H 112 H 78 Respiratory Rate 18 16 16 Blood Pressure 222/110 H 204/106 H 122/75 H Blood Pressure Mean 147 138 90 Pulse Ox 96 100 100 Oxygen Delivery Method Room Air Room Air Positive well nourished and well developed General Appearance ED: well developed HEENT HEENT Narrative: Normocephalic atraumatic Eyes PERRL and EOMs intact bilaterally General Eye ED: Negative for scleral icterus Neck supple Resp normal respiratory effort and clear to auscultation bilaterally Cardio regular rate and regular rhythm Extremity Extremity Narrative: Left lower extremity is neurovascularly intact. Patient has ecchymotic changes along the medial aspect of the proximal to middle third of the thigh with faint outline redness. There is no warmth associated with the discoloration and no pain with palpation. No induration or fluctuance. No palpable cord. No lymphangitic streaking. All compartments are soft and compressible going against compartment syndrome Negative Homans' sign bilaterally Remainder the exam is normal Neuro oriented x3, CN's II-XII intact bilaterally and no sensory deficits noted Sensorium / Orientation: alert Motor Exam: strength 5/5 throughout Psych mental status grossly normal Skin Skin Narrative: Soft tissue changes in the left thigh as documented above MDM MDM MDM Narrative Medical decision making narrative: Patient arrived to ER hypertensive but states she was extremely nervous. After allowing herself to rest and discussing her physical exam her vital stabilized without treatment. The redness/discoloration to the left thigh is concerning for potentially cellulitis but there is no warmth and the symptoms have been present for 2 weeks and she does not have a fever going against a secondary infection. There is also concern this could be atypical presentation for a DVT as she has endothelial injury. However she does not have any other risk factors for DVT and denies chest pain or shortness of breath. Therefore I will recommend an outpatient venous duplex to ensure there is no DVT but I have low concern for that at this time and do not feel the need to start her on blood thinners. Based on her history and exam patient most likely ruptured a sup erficial vein in the thigh which led to a hematoma which has been slowly moving secondary to gravity and is in the process of reabsorbing. The patient does not have a history of immunosuppression but with concern that the expanding redness could be a new developing secondary infection I will place her on doxycycline. However with spontaneous improvement of her vitals no chest pain or shortness of breath and low concern for systemic infection I do not feel the need for imaging or laboratory studies at this time and she is otherwise safe for discharge History & Record Review Discussion w/independent historian: Patient and Significant other Discharge Plan Triage Chief Complaint: Lower Extremity Injury ED Provider: Gordon Wesley Dx/Rx/DC Orders Clinical Impression: Hematoma of left thigh Instructions: ED Hematoma Prescriptions: New doxycycline monohydrate 100 mg capsule 100 mg PO BID 7 Days Qty: 14 0RF ondansetron 4 mg tablet,disintegrating 4 mg PO TID PRN (Reason: nausea and vomiting) Qty: 21 0RF No Action magnesium citrate 100 mg capsule 100 mg PO QDAY Other Ambulatory Orders: Venous Duplex US, Unilateral (Stat) Facility: [facility] - Location: [facility] [place] Ordered By: Dr. Gordon Wesley Primary Care Provider: Yamile Paul Referrals: Yamile Paul DO [Primary Care Provider, Internal Medicine] Activity Restrictions/Additional Instructions: Your history and exam would indicate the swelling and discoloration to your leg is from a ruptured blood vessel underneath the skin. The blood is now in the process of being reabsorbed and is moving secondary to gravity. Use warm compresses to help dissolve any remaining blood underneath the skin and help it reabsorb. However as there is concern there is potential for developing infection take the antibiotic as directed as well. In order to ensure there is no secondary DVT/blood clot also obtain your outpatient venous duplex. If you develop a fever increasing pain or swelling or have any further concerns return to ER for repeat evaluation Print Language: Montserratian Disposition Disposition: Home, Self Care Discharge Date/Time: 01/28/25 19:27
--- OUTSIDE RECORDS SUMMARY | 2025-01-28 19:23 | XMS RPT_ITS | CCD ---
Author Organization [facility] Care Team Providers Care Stevedoring Superintendent Name Role Phone Yamile Paul Unavailable Manas García Unavailable [phone] Slameghan, Kaycee Unavailable Unavailable Adore Monroy Unavailable Unavailable Unavailable Moreno Sun Unavailable Unavailable Unavailable Unavailable Beverly DO, Yamile Unavailable Manas García MD Unavailable [phone] Eric Wyatt MD Unavailable Slarb WIND ENERGY ENGINEER, Kaycee Unavailable Unavailable Gravius OSEI, Chelsey Unavailable Unavailable Unavailable Unavailable Dr. Brad Abel Unavailable gil Soas Unavailable Unavailable Manchak COMFORT STATION ATTENDANT, Vanna Unavailable Unavailable Beverly DO, Yamile Unavailable [phone] Car Carolina MD Unavailable Beverly DO, Yamile Attending Unavailable Beverly DO Yamile Referring Unavailable Beverly DO Yamile Consulting Unavailable Kory Beltre Attending Unavailable Beverly Yamile Primary Care Unavailable Beverly Yamile Referring Unavailable Beverly, Yamile Primary Care Unavailable Beverly Yamile Referring Unavailable Kory Beltre Attending Unavailable Beverly Yamile Primary Care Unavailable Fahad Thompson Attending Unavailable Allergies Allergy Classification Reported Allergen(s) Allergy Type Date of Onset Reaction(s) Facility (9 sources) Acetaminophen / HYDROcodone Drug Allergy [facility] Work Phone: (1 source) Adhesive Tape Allergy to substance 11-07-19 [facility] Work Phone: (1 source) diphenhydrAMINE Drug Allergy 11-07-19 22 Angioedema [facility] Work Phone: (1 source) Famotidine Drug Allergy 11-07-19 22 Anaphylaxis [facility] Work Phone: (1 source) HYDROcodone Drug Allergy 11-07-19 22 Other [facility] Work Phone: (1 source) HYDROmorphone Drug Allergy 11-07-19 22 Vomiting [facility] Work Phone: (1 source) Penicillins Allergy to substance 11-07-19 22 Rash [facility] Work Phone: (1 source) raNITIdine Drug Allergy 11-07-19 22 Anaphylaxis [facility] Work Phone: (1 source) Sucralfate Drug Allergy 11-07-19 22 Anaphylaxis [facility] Work Phone: (1 source) pineapple Allergy to substance 11-07-19 22 Hives [facility] Work Phone: (1 source) diphenhydrAMINE Drug Allergy 06-28-19 25 [facility] Repository (1 source) Famotidine Drug Allergy 06-28-19 25 [facility] Repository (1 source) HYDROcodone Drug Allergy 06-28-19 25 [facility] Repository (1 source) HYDROmorphone Drug Allergy 06-28-19 25 [facility] Repository (1 source) Penicillins Drug allergy (disorder) 06-28-19 25 [facility] Repository (1 source) raNITIdine Drug Allergy 06-28-19 25 [facility] Repository (1 source) Sucralfate Drug Allergy 06-28-19 25 [facility] Repository (1 source) pineapple Drug allergy (disorder) 06-28-19 25 [facility] Repository Medications Current Medications Medication Drug Class(es) Dates Sig (Normalized) Sig (Original) acetaminophen 325 mg / oxyCODONE hydrochloride 5 mg oral tablet (10 sources) Opioid Agonist Start: 11-06-2021 take 1 tablet by mouth every six hours Oxycodone-Acetami nophen (Percocet) 5-325 mg tablet Active 1 TABLET PO EVERY 6 HOURS 10 November 06, 2021 End: 04-20-2015 take 0.5-1 tablets by mouth every six hours as needed PERCOCET, 5-325MG (Oral Tablet) 1/2 to 1 tab q 6hrs, prn for 0 days Refills: 0 Ordered: 20-Apr-2015 Vanna Adams CMA End : 20-Apr-2015 Inactive ibuprofen 800 mg oral tablet (10 sources) Nonsteroidal Anti-inflammatory Drug Start: 11-06-2021 take 800 mg by mouth every eight hours Ibuprofen Active 800 MG PO Q8H November 06, 2021 12:00am IBU-200 200 MG O ral Tablet as needed (200 MG) Active Comments: Medication taken as needed. Comment on above: Medication taken as needed. ondansetron 4 mg disintegrating oral tablet (1 source) Serotonin-3 Receptor Antagonist Start: 2 take 4 mg by mouth every eight hours Ondansetron Active 4 MG PO Q8H November 06, 2021 12:00am tamsulosin hydrochloride 0.4 mg oral capsule (1 source) alpha-Adrenergic Florentin Start: 2 take 1 capsule by mouth once daily Tamsulosin (Flomax) 0.4 mg capsule Active 0.4 MG PO DAILY November 06, 2021 12:00am Completed/Discontinued Medications Medication Drug Class(es) Dates Sig (Normalized) Sig (Original) acetaminophen 325 mg / dichloralphenazone 100 mg / isometheptene 65 mg oral capsule (9 sources) End: 8 MIDRIN, [id number] (Oral Capsule) 50mg, one Q 4hr/PRN for 0 days Refills: 0 Ordered: 02-Mar-2007 Azucena Mcclendon LPN End : 25-Feb-2007 Inactive Comments: Not to exceed 8 in one day Comment on above: Not to exceed 8 in o ne day amoxicillin 875 mg / clavulanate 125 mg oral tablet (9 sources) Penicillin-class Antibacterial Start: 7 End: 8 take 1 tablet by mouth twice daily AUGMENTIN, 875-125MG (Oral Tablet) 1 (one) Tablet bid for 0 days Quantity: 28 {Tablet} Refills: 0 Ordered: 08-Jan-2007 Azucena Mcclendon LPN Start : 08-Jan-2007 End : 25-Feb-2007 Inactive calcium carbonate 1500 mg oral tablet (9 sources) End: 6 take 1 tablet by mouth once daily CALCIUM CARBONATE, 1500MG (Oral Tablet) one qd for 0 days Refills: 0 Ordered: 20-Apr-2015 Vanna Adams CMA End : 20-Apr-2015 Inactive cefdinir 300 mg oral capsule (9 sources) Cephalosporin Antibacterial Start: 8 End: 8 take 1 capsule by mouth twice daily CEFDINIR, 300MG (Oral Capsule) 1 (one) Capsule bid for 10 days Quantity: 21 {Capsule} Refills: 0 Ordered: 02-Mar-2007 BarbaraAdore bean Start : 02-Mar-2007 End : 30-Mar-2007 Inactive hydrocortisone valerate 2 mg/ml topical cream (9 sources) Corticosteroid Start: 2 Hydrocortisone Valerate 0.2 % External Cream 1 (one) Cream apply qd prn for 0 days Quantity: 30 {Gram} Refills: 1 Ordered: 04-Oct-2021 GravChelsey moeller CMA Start : 04-Oct-2021 Active Start: 06-26-2014 End: 04-20-2015 HYDROCORTISONE VALERATE, 0.2 % (External Cream) 1 (one) Cream apply qd prn for 0 days Quantity: 30 {Gram} Refills: 1 Ordered: 20-Apr-2015 Vanna Adams CMA Start : 26-Jun-2014 End : 20-Apr-2015 Inactive No current meds at this time (3 sources) No current meds at this time Active raNITIdine 150 mg oral capsule (9 sources) Histamine-2 Receptor Antagonist Start: 04-20-19 16 End: 05-04-19 16 take 1 capsule by mouth twice daily RANITIDINE HCL, 150MG (Oral Capsule) 1 (one) Capsule bid for 14 days Quantity: 30 {Capsule} Refills: 0 Ordered: 20-Apr-2015 Adore Monroy Start : 20-Apr-2015 End : 04-May-2015 Inactive sucralfate 100 mg/ml oral suspension (9 sources) Aluminum Complex Start: 04-20-19 16 End: 04-30-19 16 take 10 mL by mouth four times daily SUCRALFATE, 1GM/10ML (Oral Suspension) 10 Milliliter qid for 10 days Quantity: 1 {Bottle} Refills: 0 Ordered: 20-Apr-2015 Adore Monroy Start : 20-Apr-2015 End : 30-Apr-2015 Inactive traMADol hydrochloride 50 mg oral tablet (6 sources) Opioid Agonist Start: 11-07-19 22 take 1 tablet by mouth every six hours as needed for pain traMADol HCl 50 MG Oral Tablet 1 (one) Tablet 1 tab q 6hrs prn pain for 0 days Quantity: 40 {Tablet} Refills: 0 Ordered: 16-Dec-2021 Sandra Kong DO Start : 06-Nov-2021 Active Comments: verbally called to JAXSON larios 11/06 Comment on above: verbally called to Zion larios 11/06 triamcinolone acetonide 0.055 mg/actuat metered dose nasal spray (9 sources) Corticosteroid Start: 01-09-20 07 End: 02-25-19 08 NASACORT AQ, 55MCG/ACT (Nasal Aerosol Solution) 2 (two) Aerosol Soln qd for 0 days Refills: 0 Ordered: 08-Jan-2007 Azucena Mcclendon LPN Start : 08-Jan-2007 End : 25-Feb-2007 Inactive Start: 01-08-2007 End: 02-25-2007 NASACORT AQ, 55MCG/ACT (Nasa l Aerosol Solution) 2 (two) Aerosol Soln qd for 0 days Refills: 0 Ordered: 08-Jan-2007 Azucena Mcclendon LPN Start : 08-Jan-2007 End : 25-Feb-2007 Inactive Problems Active Problems Problem Classification Problem Date Documented Date Episodic/Chronic Abdominal pain (20 sources) Generalized abdominal pain; Translations: [Right upper quadrant pain] Onset: 04-07-2024 03-04-2017 Episodic Comment on above: goes from front to b ack Allergic reactions (20 sources) Eczema; Translations: [Allergic reaction] 03-04-2017 Episodic Comment on above: ? sulcralfae and ran itidine Anxiety disorders (9 sources) Panic disorder without agoraphobia; Translations: [Panic disorder without agoraphobia] 03-04-2017 Chronic Calculus of urinary tract (20 sources) Kidney stone; Translations: [Calcium renal calculus ] 03-04-2017 Episodic Gastritis and duodenitis (18 sources) Gastritis; Translations: [Gastritis] 03-04-2017 Episodic Comment on above: pain after eating an d burningpreceded eating [place] Headache; including migraine (20 sources) Migraine; Translations: [Migraine] Resolved: 10-04-2021 03-04-2017 Chronic Hemorrhoids (9 sources) Hemorrhoids; Translations: [Hemorrhoids] 03-04-2017 Episodic Immunizations and screening for infectious disease (16 sources) Need for prophylactic vaccination and inoculation against influenza; Translations: [Needs influenza immunization] Resolved: 08-07-2008 11-28-2014 Episodic Mycoses (9 sources) Pityriasis versicolor; Translations: [Pityriasis versicolor] 03-04-2017 Episodic Open wounds of head; neck; and trunk (15 sources) Open wound of forehead, without mention of complication; Translations: [Eyebrow/Forehead] 03-04-2017 Episodic Other circulatory disease (20 sources) Elevated blood-pressure reading without diagnosis of hypertension; Translations: [Elevated blood pressure (not hypertension)] 03-04-2017 Episodic Comment on above: she [place] and verify if issue Other circulatory disease (10 sources) Elevated blood pressure; Translations: [Elevated blood pressure reading] 12-16-2021 Episodic Other ear and sense organ disorders (10 sources) Wax in ear canal; Translations: [Cerumen in auditory canal on examination] 12-16-2021 Episodic Comment on above: rec debrox first Other ear and sense organ disorders (10 sources) Tinnitus of right ear; Translations: [Tinnitus, right] 12-16-2021 Episodic Other nervous system disorders (9 sources) Brachial plexus lesions; Translations: [Brachial plexus lesions] 03-04-2017 Chronic Other nutritional; endocrine; and metabolic disorders (20 sources) Body mass index 30+ - obesity; Translations: [BMI 31.0-31.9,adult] 03-04-2017 Chronic Other screening for suspected conditions (not mental disorders or infectious disease) (20 sources) Patient encounter status; Translations: [Colon cancer screening (Renamed from Encounter for screening for malignant neoplasm of colon)] 10-04-2021 Episodic Other upper respiratory infections (18 sources) Acute sinusitis; Translations: [Acute sinusitis] Resolved: 08-07-2008 08-07-2008 Episodic Peritonitis and intestinal abscess (20 sources) Other suppurative peritonitis; Translations: [ABDOMINAL ABSCESS, NOS] Resolved: 08-07-2008 12-05-2019 Episodic Comment on above: I have asked pt to r eturn in 1 week and also to call us and discuss what tells her. regarding wound care. Residual codes; unclassified (20 sources) Non-smoker; Translations: [Nonsmoker] 10-04-2021 Episodic Skin and subcutaneous tissue infections (20 sources) Cellulitis and abscess of trunk; Translations: [Cellulitis of Truck] Resolved: 08-07-2008 08-07-2008 Episodic Unclassified (20 sources) Unclassified (6 sources) Elevated Blood Pressure(796.2) Past or Other Problems Problem Classification Problem Date Documented Da te Episodic/Chronic Residual codes; unclassified (2 sources) History of appendectomy; Translations: [Appendectomy] 03-04-2017 Episodic Residual codes; unclassified (2 sources) H/O: surgery; Translations: [Tonsillectomy] 03-04-2017 Episodic Residual codes; unclassified (2 sources) Needs influenza immunization; Translations: [Need for prophylactic vaccination and inoculation against influenza] Resolved: 08-07-2008 11-28-2014 Episodic Unclassified (13 sources) ABDOMINAL ABSCESS, NOS (567.2) Resolved: 08-07-2008 08-07-2008 Comment on above: I have asked pt to r eturn in 1 week and also to call us and discuss what tells her. regarding wound care. Unclassified (9 sources) Cellulitis of Truck(682.2) Unclassified (9 sources) Deliveries (Parity); Translations: [Deliveries (Parity)] 03-04-2017 Comment on above: 3 Unclassified (9 sources) Last Pap Smear, Date; Translations: [Sampling of cervix for Papanicolaou smear] Onset: 10-09-2003 03-04-2017 Unclassified (2 sources) Mammogram; Translations: [Mammogram] Onset: 10-27-2003 03-04-2017 Unclassified (6 sources) Non-smoker; Translations: [Nonsmoker] 03-04-2017 Unclassified (3 sources) Eyebrow/Forehead (873.42) Unclassified (3 sources) BMI 32.0-32.9,adult Unclassified (9 sources) Pregnancies (); Translations: [Pregnancies ()] 03-04-2017 Comment on above: 3 Unclassified (9 sources) Tubal Ligation; Translations: [Tubal Ligation] 03-04-2017 Unclassified (9 sources) Unspecified Diagnosis 03-04-2017 Unclassified (3 sources) Abdominal Pain,RUQ(789.01) Unclassified (3 sources) Acute generalized abdominal pain Unclassified (1 source) BMI 31.0-31.9,adult Unclassified (1 source) RLQ abdominal pain Unclassified (1 source) Pelvic pain in female Unclassified (1 source) Colon cancer screening (Renamed from Encounter for screening for malignant neoplasm of colon) Results Test Name Value Interpretation Reference Range Facility Orthopedic Visit Reporton Orthopedic Visit Report [facility] [address] [place] [address] OFFICE VISIT Date of Service: 06/27/24 MR#: [id number] Acct: [id number] Name: DAVIS LUNA Rep #: [id number] : 1955 Provider: Dr. Kory dougherty DO Age/Sex: 69/F [place] [facility] [place] [facility] [place]: Signed Intake Vital Signs 06/08/24 10:33 Height 5 ft 6 in Weight: 214 lb BMI 34.5 Intake Visit Reasons: LEFT KNEE Chief Complaint: left knee follow-up Accompanied by: Is patient in pain?: Yes Pain scale (1-10): 6 Allergies diphenhydramine (From Benadryl) Allergy (Verified 06/27/24 09:03) Angioedema famotidine (From Pepcid) Allergy (Verified 06/27/24 09:03) Anaphylaxis Penicillins Allergy (Verified 06/27/24 09:03) Rash pineapple Allergy (Verified 06/27/24 09:03) Hives ranitidine (From Zantac) Allergy (Verified 06/27/24 09:03) Anaphylaxis sucralfate (From Carafate) Allergy (Verified 06/27/24 09:03) Anaphylaxis hydrocodone Adverse Reaction (Verified 06/27/24 09:03) Other hydromorphone (From Dilaudid) Adverse Reaction (Verified 06/27/24 09:03) Vomiting Medications ???Medication ???Instructions ???Recorded ???Confirmed ???Type magnesium citrate 100 mg capsule 100 mg PO QDAY 06/08/24 06/27/24 H istory etodolac 500 mg tablet 500 mg PO BID #40 tabs 06/10/24 Rx celecoxib 100 mg capsule (Celebrex) 100 mg PO BID #30 caps 06/27/24 06/27/24 Rx Have you fallen in the past year?: No PFSH Medical History Hx of thoracic outlet syndrome Kidney stones Surgical History Hx of arthroscopy of left knee Hx of appendectomy Hx of section Social History Smoking Status: Never smoker HPI LEFT KNEE Details: This documentation accurately reflects the service provided and the decisions made by me, Dr. Kory Beltre, DO 06/27/24 0747. Part of today???s visit was documented by Saba Medina ATC, acting as scribe. DAVIS LUNA is a 69 year old F here today for left knee follow-up. Patient states the knee pain gets worse as the day goes on. She states the Etodolac did not give her any relief this time. She states she tried it once before and it helped a lot but this time it did nothing. She states it gave her an upset stomach. Patient is thinking she may want to try a steroid injection. She does not have any mechanical symptoms or instability. 06/08/2024 visit:here today for continued left knee pain. She states that she recently was babysitting one of her grandchildren which threw her hip and knee off which is what i causing her left knee pain. She states that she is having the same symptoms as she was when she was seen in 2022. Her pain is over the anterior lateral side of her knee. When she stands she feels like the knee pinches. She states that the Etodolac we prescribed helped with her pain and within 2-3 days after taking the pain went away. She does still have the Etodolac but it is . She would like a new prescription for the Etodolac. She has been having the pain this time for about 4 weeks now. Plan:Patient is here today for left knee pain after holding her grandson, and changes in her exercise routine. I explained to her that any changes in her exercise routine should be gradual and she should see how she feels after any increases in her routine for 48 hours then incremental increases at that point. I will prescribe her the Etodolac today per her request. Follow-up as needed. 06/18/2022 visit: NEW patient here today for left knee pain that she has been having for about 6 weeks. Denies any injury but she states that the pain started after she was dealing with sciatica. She has pain over the anterior lateral side of the knee along with swelling. Denies any painful mechanical knee. She states that at night the pain is worse and she has a throbbing in the knee that keeps her up. She states that for the last 3-4 days she has had trouble WB because she has a pinching in the knee. She states that she did have a previous left knee scope about 24 years ago at [facility]. Denies any past injections into the knee. She was trying a OTC knee brace that she got and she has been icing and taking ibuprofen for her pain. Plan: Obtained X-rays of patient's left knee. Personally reviewed x-rays. She does have history of prior partial meniscectomy . there is no obvious fracture, dislocation, or lucency noted. Patient educated that she has mild degenerative changes of the knee and this has more than likely been inflamed. Treatment options are do nothing or oral NSAID or steroid injection or both. She wishes to proceed with prescription NSAID(Etodolac) and if this is not helpful in the next 3-4 weeks (more content not included)... Normal [facility] Orthopedic Visit Reporton Orthopedic Visit Report [facility] [address] [place] [id number] OFFICE VISIT Date of Service: 06/08/24 MR#: [id number] Acct: [id number] Name: DAVIS LUNA RAUL Rep #: [id number] : 1955 Provider: Dr. Kory dougherty DO Age/Sex: 69/F Location: [facility] [place] Status: Signed Intake Vital Signs 03/21/24 03:12 06/01/24 10:46 06/08/24 10:33 Height 5 ft 6.93 in 5 ft 6.93 in 5 ft 6 in Weight: 214 lb BMI 34.5 Intake Visit Reasons: LEFT KNEE Chief Complaint: left knee Allergies diphenhydramine (From Benadryl) Allergy (Verified 06/08/24 10:33) Angioedema famotidine (From Pepcid) Allergy (Verified 06/08/24 10:33) Anaphylaxis Penicillins Allergy (Verified 06/08/24 10:33) Rash pineapple Allergy (Verified 06/08/24 10:33) Hives ranitidine (From Zantac) Allergy (Verified 06/08/24 10:33) Anaphylaxis sucralfate (From Carafate) Allergy (Verified 06/08/24 10:33) Anaphylaxis hydrocodone Adverse Reaction (Verified 06/08/24 10:33) Other hydromorphone (From Dilaudid) Adverse Reaction (Verified 06/08/24 10:33) Vomiting Medications ???Medication ???Instructions ???Recorded ???Confirmed ???Type magnesium citrate 100 mg capsule 100 mg PO QDAY 06/08/24 06/08/24 H istory Have you fallen in the past year?: No PFSH Medical History Hx of thoracic outlet syndrome Kidney stones Surgical History Hx of arthroscopy of left knee Hx of appendectomy Hx of section Social History Smoking Status: Never smoker HPI LEFT KNEE Details: This documentation accurately reflects the service provided and the decisions made by me, Dr. Kory Beltre, DO 06/08/24 0749. Part of today???s visit was documented by Tala PRICE, acting as scribe. DAVIS LUNA is a 69 year old F here today for continued left knee pain. She states that she recently was babysitting one of her grandchildren which threw her hip and knee off which is what i causing her left knee pain. She states that she is having the same symptoms as she was when she was seen in 2022. Her pain is over the anterior lateral side of her knee. When she stands she feels like the knee pinches. She states that the Etodolac we prescribed helped with her pain and within 2-3 days after taking the pain went away. She does still have the Etodolac but it is . She would like a new prescription for the Etodolac. She has been having the pain this time for about 4 weeks now. 06/18/2022 visit: NEW patient here today for left knee pain that she has been having for about 6 weeks. Denies any injury but she states that the pain started after she was dealing with sciatica. She has pain over the anterior lateral side of the knee along with swelling. Denies any painful mechanical knee. She states that at night the pain is worse and she has a throbbing in the knee that keeps her up. She states that for the last 3-4 days she has had trouble WB because she has a pinching in the knee. She states that she did have a previous left knee scope about 24 years ago at [facility]. Denies any past injections into the knee. She was trying a OTC knee brace that she got and she has been icing and taking ibuprofen for her pain. Plan: Obtained X-rays of patient's left knee. Personally reviewed x-rays. She does have history of prior partial meniscectomy . there is no obvious fracture, dislocation, or lucency noted. Patient educated that she has mild degenerative changes of the knee and this has more than likely been inflamed. Treatment options are do nothing or oral NSAID or steroid injection or both. She wishes to proceed with prescription NSAID(Etodolac) and if this is not helpful in the next 3-4 weeks then she can return for the steroid injection. Follow up in 3-4 weeks if still having pain. Ortho Exam General General: Yes no acute distress Neurologic: Yes alert and Yes oriented x3 Psychologic: Yes reasonable and appropriate Right Knee Patella Translation: 1 Left Knee Skin/Wound: Yes CDI, No ecchymosis, No erythema and No swelling Homans Sign: No Knee ROM: Yes ROM-Extension -20 to 0 and Yes ROM-Flexion 0-140 (125) Examination: Yes med jt line tenderness, Yes Lat jt line tenderness, No Crepitus, No Kevin's Test and No TTP Pes Anserine Stability: NML: Anterior Drawer, NML: Posterior Drawer, NML: Valgus 0, NML: Valgus 30, NML: Varus 0 and NML: Varus 30 Apprehension with Lateral Translation: No Patella Translation: 1 Patella Grind: Yes KNEE: no effusion Supplemental Info 06/18/2022 x-ray left knee: There is mild spurring and joint space narrowing of the medial compartment Coding Level of Care Code Off vis,est,level 3 Diagnoses (more content not included)... Normal [facility] Abdomen/Pelvis without Conto n 03-21-2024 Abdomen/Pelvis without Cont [facility] [address] [place] [address] Abdomen/Pelvis without Cont MR#: [id number] Acct: [id number] Name: DAVIS LUNA Rep #: [id number] : 1955 F 68 From: Chente Nagy MD PCP: Dr. Yamile Paul, Status: REG ER Study: Abdomen/Pelvis without Cont Date of Exam: 02/24 09/16 Exam# [id number] Ordering [place]: [place] [id number] INDICATION: Right flank pain EXAMINATION: CT Abdomen And Pelvis W/O Contrast Injection TECHNIQUE: Helically acquired images were obtained of the abdomen and pelvis with sagittal and coronal reconstructed images. Individualized dose optimization techniques were used for this CT. IV contrast dosage and agent: None. Oral contrast: None. COMPARISON: 11/06/2021 CT. FINDINGS: VESSELS: No abdominal aortic aneurysm. LIVER: No intrahepatic or extrahepatic biliary duct dilation. GALLBLADDER: No calcified stones. No evidence of cholecystitis. PANCREAS: No evidence of a mass. No evidence of pancreatitis. SPLEEN: Normal. ADRENAL GLANDS: Normal. KIDNEYS AND URETERS: Right renal stones. Moderate right hydronephrosis and hydroureter. 4 mm stone in the distal right ureter, at the ureterovesical junction. No left-sided urinary tract stone or obstruction. URINARY BLADDER: Unremarkable. BOWEL: Diverticulosis with no evidence of diverticulitis. Appendix not identified. No evidence of bowel obstruction. REPRODUCTIVE ORGANS: Unremarkable. PERITONEUM: No intraabdominal free fluid or free air. LYMPH NODES: No pathologically enlarged mesenteric or retroperitoneal lymph nodes. ABDOMINAL WALL: No abdominal or pelvic wall hernia. BONES: No acute abnormality. LOWER CHEST: Visualized lung bases are unremarkable. CT/Abdomen/Pelvis without Cont IMPRESSION: 4 mm stone in the distal right ureter, at the ureterovesical junction, with moderate right hydronephrosis. Electronically Signed: Chente Nagy DO at 5:39 EST , CC: Dr. Fahad Thompson DO; Dr. Yamile Paul DO Heel Seat Sander: Signed Normal [facility] Basic Metabolic Profile (BMP )on 03-21-2024 BUN/CRE 15.7 RATIO Normal 10-20 [facility] Comment on above: Performed By: #### L 500.2500, L100.0100 #### [facility] [address] [place], [address] CA,Total 9.4 mg/dL Normal 8.5-10.1 [facility] Comment on above: Performed By: #### L 500.2500, L100.0100 #### [facility] [address] [place], [address] Chloride [Moles/Vol] 104 mmol/L Normal 98-107 [facility] Comment on above: Performed By: #### L 500.2500, L100.0100 #### [facility] [address] [place], [address] CO2 [Moles/Vol] 26.0 mmol/L Normal 21.0-32.0 [facility] Comment on above: Performed By: #### L 500.2500, L100.0100 #### [facility] [address] [place], [address] Creatinine [Mass/Vol] 0.89 mg/dL Normal 0.55-1.02 [facility] Comment on above: Result Comment: The validity of the calculated GFR GFRAA in patients over 70 years has not been determined. Clinical correlation is essential. Performed By: #### L 500.2500, L100.0100 #### [facility] [address] [place], [address] ECRCL 71.72 ml/min Normal [facility] Comment on above: Performed By: #### L 500.2500, L100.0100 #### [facility] [address] [place], [address] EST GFR - AA 81 mL/min Normal >60 [facility] Comment on above: Result Comment: Afri can Welsh GFR Calc Performed By: #### L 500.2500, L100.0100 #### [facility] [address] [place], [address] GAP 9 Normal 5-15 [facility] Comment on above: Performed By: #### L 500.2500, L100.0100 #### [facility] [address] [place], [address] GFR/1.73 sq M.predicted among non-blacks MDRD (S/P/Bld) [Vol rate/Area] 67 mL/min/{1.73_m2} Normal >60 [facility] Comment on above: Result Comment: Non- GFR Calc Performed By: #### L 500.2500, L100.0100 #### [facility] [address] [place], [address] Glucose [Mass/Vol] 107 mg/dL High 74-106 [facility] Comment on above: Result Comment: Fast ing Glucose result from 100 to 125 mg/dL suggests IMPAIRED HOMEOSTASIS per A.D.A. criteria. Performed By: #### L 500.2500, L100.0100 #### [facility] [address] [place], [address] Potassium [Moles/Vol] 4.1 mmol/L Normal 3.5-5.1 [facility] Comment on above: Result Comment: Mode rate Hemolysis, Result may be falsely increased. Performed By: #### L 500.2500, L100.0100 #### [facility] [address] [place], [address] Sodium [Moles/Vol] 139 mmol/L Normal 136-145 [facility] Comment on above: Performed By: #### L 500.2500, L100.0100 #### [facility] [address] [place], [address] Urea nitrogen [Mass/Vol] 14 mg/dL Normal 7-18 [facility] Comment on above: Performed By: #### L 500.2500, L100.0100 #### [facility] [address] [place], [address] CBC W/Diff, Automatedon 02-24 Absolute Lymph 2.48 X10 3/uL Normal 0.83-4.51 [facility] Comment on above: Performed By: #### L 500.2500, L100.0100 #### [facility] [address] [place], [address] Absolute Neut 3.1 X10 3/uL Normal 2.0-7.7 [facility] Comment on above: Performed By: #### L 500.2500, L100.0100 #### [facility] [address] [place], [address] Basophils/100 WBC (Bld) 1.9 % High 0-1 [facility] Comment on above: Performed By: #### L 500.2500, L100.0100 #### [facility] [address] [place], [address] Eosinophils/100 WBC (Bld) 4.3 % Normal 0-5 [facility] Comment on above: Performed By: #### L 500.2500, L100.0100 #### [facility] [address] [place], [address] Erythrocyte distribution width (RBC) [Ratio] 13.5 % Normal 11.6-14.6 [facility] Comment on above: Performed By: #### L 500.2500, L100.0100 #### [facility] [address] [place], [address] Hematocrit (Bld) [Volume fraction] 46.7 % Normal 37-47 [facility] Comment on above: Performed By: #### L 500.2500, L100.0100 #### [facility] [address] [place], [address] Hemoglobin (Bld) [Mass/Vol] 15.8 g/dL High 12.0-15.0 [facility] Comment on above: Performed By: #### L 500.2500, L100.0100 #### [facility] [address] [place], [address] IG% 0.100 Normal 0.0-0.9 [facility] Comment on above: Result Comment: IG% - Immature Granulocytes (promyelocytes, myelocytes and metamyelocytes) > 1% indicates that a LEFT SHIFT is Present. Performed By: #### L 500.2500, L100.0100 #### [facility] [address] [place], [address] Lymphocytes/100 WBC (Bld) 37.1 % Normal 19-41 [facility] Comment on above: Performed By: #### L 500.2500, L100.0100 #### [facility] [address] [place], [address] MCH (RBC) [Entitic mass] 29.7 pg Normal 27.0-32.0 [facility] Comment on above: Performed By: #### L 500.2500, L100.0100 #### [facility] [address] [place], [address] MCHC (RBC) [Mass/Vol] 33.8 g/dL Normal 32-36 [facility] Comment on above: Performed By: #### L 500.2500, L100.0100 #### [facility] [address] [place], [address] MCV (RBC) [Entitic vol] 87.8 fL Normal 81-99 [facility] Comment on above: Performed By: #### L 500.2500, L100.0100 #### [facility] [address] [place], [address] Monocytes/100 WBC (Bld) 9.6 % Normal 0-10 [facility] Comment on above: Performed By: #### L 500.2500, L100.0100 #### [facility] [address] [place], [address] Neutrophils/100 WBC (Bld) 47.0 % Normal 47-70 [facility] Comment on above: Performed By: #### L 500.2500, L100.0100 #### [facility] [address] [place], [address] Nucleated RBC (Bld) [#/Vol] 0 10*3/uL Normal 0-5 [facility] Comment on above: Performed By: #### L 500.2500, L100.0100 #### [facility] [address] [place], [address] Platelet mean volume (Bld) [Entitic vol] 12.0 fL Normal 6.2-12.0 [facility] Comment on above: Performed By: #### L 500.2500, L100.0100 #### [facility] [address] [place], [address] Platelets (Bld) [#/Vol] 185 10*3/uL Normal 150-450 [facility] Comment on above: Performed By: #### L 500.2500, L100.0100 #### [facility] [address] [place], [address] RBC (Bld) [#/Vol] 5.32 10*6/uL Normal 4.2-5.4 [facility] Comment on above: Performed By: #### L 500.2500, L100.0100 #### [facility] [address] [place], [address] RDW SD 43.6 fl Normal 35.1-43.9 [facility] Comment on above: Performed By: #### L 500.2500, L100.0100 #### [facility] [address] [place], [address] WBC (Bld) [#/Vol] 6.7 10*3/uL Normal 4.4-11.0 [facility] Comment on above: Performed By: #### L 500.2500, L100.0100 #### [facility] [address] [place], [address] Emergency Department Summary on 03-21-2024 Emergency Department Summary [facility] Medical Records Department [address] [place] [address] Emergency Department Summary 03/21/24 MR#: [id number] Acct: [id number] Name: DAVIS LUNA Rep #: [id number] : 1955 68 From: Fahad Thompson DO PCP: Dr. Yamile Paul, DO Status:DEP ER Location: ED HPI History of Present Illness Chief Complaint: Flank Pain Informant: patient Onset/Context/Timing Onset: Today Context: Sudden Onset Timing: Continuous Quality: Burning Location: Right lower abdomen Worsened by: Nothing Relieved by: Nothing Narrative Narrative: Patient presents with right flank pain that began today. Patient states it started in the right upper flank area and now is in the right lower abdomen. Patient states that over the past few days she felt like she was getting a urinary tract infection. Patient describes her pain as burning. Patient states nothing makes it worse and nothing makes it better. Patient admits to some nausea but denies any vomiting. Patient admits to some dysuria but denies any hematuria or frequency. Patient denies any fevers or chills. Patient states she has had multiple kidney stones in the past and has had lithotripsy for them. PFSH PFS Medical History Hx of thoracic outlet syndrome Kidney stones Home Medications ???Medication ???Instructions ???Recorded ???Last Taken ???Type etodolac 500 mg tablet 500 mg PO BID PRN pain #40 tabs 06/18/22 Unknown Rx ibuprofen 200 mg tablet 200 mg PO Q6H PRN 06/18/22 Unknown History ciprofloxacin HCl 500 mg tablet 500 mg PO BID #14 TABLETS 03/21/24 Unknown Rx tramadol 50 mg tablet 50 mg PO Q4H PRN PRN Pain 3 days 03/21/24 Unknown Rx #20 tabs Allergy/AdvReac Type Severity Reaction Status Date / Time diphenhydramine (From Allergy Angioedema Verified 03/21/24 03:13 Benadryl) famotidine (From Pepcid) Allergy Anaphylaxis Verified 03/21/24 03:13 Penicillins Allergy Rash Verified 03/21/24 03:13 pineapple Allergy Hives Verified 03/21/24 03:13 ranitidine (From Zantac) Allergy Anaphylaxis Verified 03/21/24 03:13 sucralfate (From Carafate) Allergy Anaphylaxis Verified 03/21/24 03:13 hydrocodone AdvReac Other Verified 03/21/24 03:13 hydromorphone (From Dilaudid) AdvReac Vomiting Verified 03/21/24 03:13 Surgical History Hx of arthroscopy of left knee Hx of appendectomy Hx of section Social History Smoking Status: Never smoker ROS ROS ED Constitutional Constitutional ED: Denies chills or fever(s) Eyes Eyes: Denies blurry vision or change in vision ENT ENT ED: Denies rhinorrhea or sore throat Cardiovascular Cardiovascular: Denies chest pain or palpitations Respiratory/Chest Respiratory/Chest: Denies cough or dyspnea Gastrointestinal Gastrointestinal: Reports nausea; Denies vomiting Genitourinary Genitourinary ED: Reports dysuria; Denies hematuria Musculoskeletal Musculoskeletal: Denies back pain or neck pain Integumentary Denies abscess or rash Neurologic Neurologic: Reports headache(s); Denies weakness Allergic/Immunologic Allergic/Immunologic ED: Denies mouth swelling or urticaria EXAM Physical Exam Const Vital Signs: 03/21/24 03:12 Temperature 97.6 F L Temperature Source Oral Pulse Rate 91 Respiratory Rate 18 Blood Pressure 206/99 H Blood Pressure Mean 134 Pulse Ox 98 Oxygen Delivery Method Room Air Positive well nourished and well developed General Appearance ED: well developed and NAD HEENT Reports moist mucous membranes Neck supple and no JVD Resp normal respiratory effort and clear to auscultation bilaterally Cardio regular rate and regular rhythm GI non-distended Palpation: soft and tender RLQ and Rovsing's sign (Negative); Negative for guarding or rebound tenderness present Back/Spine no CVA tenderness Neuro oriented x3, CN's II-XII intact bilaterally and no sensory deficits noted Sensorium / Orientation: alert Motor Exam: strength 5/5 throughout Psych mental status grossly normal MDM MDM MDM Narrative Medical decision making narrative: Differential diagnose includes ureteral calculus, pyelonephritis, appendicitis, gastroenteritis, mesenteric adenitis, urinary tract infection, and ovarian cyst. CBC will be obtained to assess for leukocytosis and anemia. Basic metabolic profile will be obtained to assess for electrolyte abnormality renal function. Urinalysis will be obtained to assess for urinary tract infection and hematuria. CT scan of the abdomen and pelvis will be obtained to assess for appendicitis, ureteral calculus, ovarian cyst, and mesenteric adenitis. Lab Data Attestation: I reviewe (more content not included)... Normal [facility] Urinalysis, Completeon 03-21 BACTERIA RARE Normal None Seen [facility] Comment on above: Order Comment: CLEAN CATCH Performed By: #### L 400.0001 #### [facility] [address] [place], [address] EPI,SQUAMOUS 5-10 SEEN Normal 5-10 [facility] Comment on above: Order Comment: CLEAN CATCH Performed By: #### L 400.0001 #### [facility] [address] [place], [address] Mucus Ql (Urine sed) RARE Normal [facility] Comment on above: Order Comment: CLEAN CATCH Performed By: #### L 400.0001 #### [facility] [address] [place], [address] WBC 25-50 SEEN Normal 0-5 [facility] Comment on above: Order Comment: CLEAN CATCH Performed By: #### L 400.0001 #### [facility] [address] [place], [address] BILIRUBIN URINE Negative Normal Negative [facility] Comment on above: Order Comment: CLEAN CATCH Performed By: #### L 400.0001 #### [facility] [address] [place], [address] Clarity (U) Clear Normal Clear [facility] Comment on above: Order Comment: CLEAN CATCH Performed By: #### L 400.0001 #### [facility] [address] [place], [address] Color (U) Straw Normal Yellow [facility] Comment on above: Order Comment: CLEAN CATCH Performed By: #### L 400.0001 #### [facility] [address] [place], [address] GLUCOSE, UR Normal Normal Normal [facility] Comment on above: Order Comment: CLEAN CATCH Performed By: #### L 400.0001 #### [facility] [address] [place], [address] KETONE UR Negative Normal Negative [facility] Comment on above: Order Comment: CLEAN CATCH Performed By: #### L 400.0001 #### [facility] [address] [place], [address] LEUK ESTERASE 100 /ul Abnormal Negative [facility] Comment on above: Order Comment: CLEAN CATCH Performed By: #### L 400.0001 #### [facility] [address] [place], [address] Nitrite Ql (U) Negative Normal Negative [facility] Comment on above: Order Comment: CLEAN CATCH Performed By: #### L 400.0001 #### [facility] [address] [place], [address] OCCULT BLOOD-UR 10 /ul Abnormal Negative [facility] Comment on above: Order Comment: CLEAN CATCH Performed By: #### L 400.0001 #### [facility] [address] [place], [address] pH UR 7.0 Normal 5.0 - 8.0 [facility] Comment on above: Order Comment: CLEAN CATCH Performed By: #### L 400.0001 #### [facility] [address] [place], [address] PROT DIPSTX Negative Normal Negative [facility] Comment on above: Order Comment: CLEAN CATCH Performed By: #### L 400.0001 #### [facility] [address] [place], [address] SP.GR. DIPSTX 1.005 Normal 1.002-1.030 [facility] Comment on above: Order Comment: CLEAN CATCH Performed By: #### L 400.0001 #### [facility] [address] [place], [address] UROBILI Normal Normal Normal [facility] Comment on above: Order Comment: CLEAN CATCH Performed By: #### L 400.0001 #### [facility] [address] [place], [address] RBC 0 SEEN Normal 0-5 [facility] Comment on above: Order Comment: CLEAN CATCH Performed By: #### L 400.0001 #### [facility] [address] [place], [place], [address] Absolute lymphocyte counton 11-06-2021 Lymphocytes Auto (Unsp spec) [#/Vol] 2.76 10*3/uL 0.83-4.51 [facility] Work Phone: Basophil percentageon 2021 Basophil percentage 5-10 SEEN /hpf 0-[address] [facility] Work Phone: Basophils/100 WBC (Bld) 1.7 % 0-1 [facility] Work Phone: Chloride [Moles/Vol] 105 mmol/L 98-107 [facility] Work Phone: Eosinophils/100 WBC (Bld) 2.2 % 0-5 [facility] Work Phone: Glucose [Mass/Vol] 111 mg/dL 74-106 [facility] Work Phone: Comment on above: Fasting Glucose resu lt from 100 to 125 mg/dL suggests IMPAIRED HOMEOSTASIS per A.D.A. criteria. Neutrophils (Bld) [#/Vol] 2.4 10*3/uL 2.0-7.7 [facility] Work Phone: Neutrophils/100 WBC (Bld) 40.1 % 47-70 [facility] Work Phone: Potassium [Moles/Vol] 4.1 mmol/L 3.5-5.1 [facility] Work Phone: Comment on above: Moderate Hemolysis, Result may be falsely increased. Sodium [Moles/Vol] 139 mmol/L 136-145 [facility] Work Phone: WBC (Bld) [#/Vol] 6.0 10*3/uL 4.4-11.0 [facility] Work Phone: Bilirubin Test strip Ql (U)o n 11-06-2021 Bilirubin Ql (U) Negative Negative [facility] Work Phone: Blood erythrocytes count (nu mber/volume)on 11-06-2021 RBC (Bld) [#/Vol] 5.08 10*6/uL 4.2-5.4 [facility] Work Phone: Blood hemoglobin measurement (mass/volume)on 11-06-2021 Hemoglobin (Bld) [Mass/Vol] 15.5 g/dL 12.0-15.0 [facility] Work Phone: Blood lymphocytes/100 leukoc yteson 11-06-2021 Lymphocytes/100 WBC (Bld) 46.1 % 19-41 [facility] Work Phone: Blood monocytes/100 leukocyt eson 11-06-2021 Monocytes/100 WBC (Bld) 9.7 % 0-10 [facility] Work Phone: Blood platelet mean volumeon 11-06-2021 Platelet mean volume (Bld) [Entitic vol] 12.3 fL 6.2-12.0 [facility] Work Phone: Determination of erythrocyte mean corpuscular volume (MCV)on 11-06-2021 MCV (RBC) [Entitic vol] 91.9 fL 81-99 [facility] Work Phone: Hematocrit Auto (Bld) [Volum e fraction]on 11-06-2021 Hematocrit (Bld) [Volume fraction] 46.7 % 37-47 [facility] Work Phone: Ketones Test strip Ql (U)on 11-06-2021 Ketones Ql (U) Negative Negative [facility] Work Phone: Laboratory - Chemistry and C hemistry - challengeon 11-06-2021 CO2 [Moles/Vol] 25.0 mmol/L 21.0-32.0 [facility] Work Phone: Urea nitrogen/Creatinine [Mass ratio] 17.1 mg/mg 10-20 [facility] Work Phone: Laboratory - Hematology and Cell countson 11-06-2021 Erythrocyte distribution width (RBC) [Entitic vol] 45.2 fL 35.1-43.9 [facility] Work Phone: Erythrocyte distribution width (RBC) [Ratio] 13.2 % 11.6-14.6 [facility] Work Phone: Immature granulocytes/100 WBC (Bld) 0.200 % 0.0-0.9 [facility] Work Phone: Comment on above: IG% - Immature Granu locytes (promyelocytes, myelocytes and metamyelocytes) > 1% indicates that a LEFT SHIFT is Present. MCH (RBC) [Entitic mass] 30.5 pg 27.0-32.0 [facility] Work Phone: Nucleated RBC/100 WBC (Bld) [Ratio] 0 % 0-5 [facility] Work Phone: MCHC Auto (RBC) [Mass/Vol]on 11-06-2021 MCHC (RBC) [Mass/Vol] 33.2 g/dL 32-36 [facility] Work Phone: Mucus LM Ql (Urine sed)on Mucus Ql (Urine sed) 0 SEEN /hpf [facility] Work Phone: Nitrite Test strip Ql (U)on 11-06-2021 Nitrite Ql (U) Negative Negative [facility] Work Phone: No Panel Informationon 11-06 Estimated Creatinine Clearance Calc 57.25 ml/min [facility] Work Phone: Estimated GFR (MDRD) Amer 77 mL/min >60 [facility] Work Phone: Comment on above: GFR Calc Estimated GFR (MDRD) Non-Af Amer 63 mL/min >60 [facility] Work Phone: Comment on above: Non- GFR Calc Urine Transitional Epithelial Cells 0-5 SEEN /hpf 0-5 [facility] Work Phone: Platelets bldon 11-06-2021 Platelets (Bld) [#/Vol] 226 10*3/uL 150-450 [facility] Work Phone: Protein Test strip Ql (U)on 11-06-2021 Protein Ql (U) Negative Negative [facility] Work Phone: Serum or plasma calcium cortez urement (mass/volume)on 11-06-2021 Calcium [Mass/Vol] 9.3 mg/dL 8.5-10.1 [facility] Work Phone: Serum or plasma creatinine m easurement (mass/volume)on 11-06-2021 Creatinine [Mass/Vol] 0.94 mg/dL 0.55-1.02 [facility] Work Phone: Comment on above: The validity of the calculated GFR & GFRAA in patients over 70 years has not been determined. Clinical correlation is essential. Serum or plasma urea nitroge n measurement (mass/volume)on 11-06-2021 Urea nitrogen [Mass/Vol] 16 mg/dL 7-18 [facility] Work Phone: Squamous epithelial cells de tection in urine sediment by light microscopyon 11-06-2021 Epithelial cells.squamous LM Ql (Urine sed) 0 SEEN /hpf 5-10 [facility] Work Phone: Thin prep Papanicolaou smear with manual screeningon 11-06-2021 Thin prep Papanicolaou smear with manual screening 9 5-15 [facility] [facility] Work Phone: Urine blood detectionon 10-24 RBC Ql (U) Negative Negative [facility] Work Phone: RBC Ql (U) 0 SEEN /hpf 0-5 [facility] Work Phone: Urine clarityon 11-06-2021 Clarity (U) Clear Clear [facility] Work Phone: Urine color determinationon 11-06-2021 Color (U) Straw Yellow [facility] Work Phone: Urine glucose detectionon Glucose Ql (U) Normal mg/dl Normal [facility] Work Phone: Urine leukocyte esterase det ection by dipstickon 11-06-2021 Leukocyte esterase Test strip Ql (U) 100 /ul Negative [facility] Work Phone: Urine pHon 11-06-2021 pH (U) 7.0 [pH] 5.0 - 8.0 [facility] Work Phone: Urine sediment bacteria coun t by microscopy (number/high power field)on 11-06-2021 Bacteria LM.HPF (Urine sed) [#/Area] RARE /hpf None Seen [facility] Work Phone: Urine sediment renal epithel ial cell count by microscopy (number/high power field)on 11-06-2021 Epithelial cells.renal LM.HPF (Urine sed) [#/Area] 0 /[HPF] 0-5 [facility] Work Phone: Urine specific gravity measu rementon 11-06-2021 Specific gravity (U) [Rel density] 1.010 1.002-1.030 [facility] Work Phone: Urobilinogen Auto test strip Ql (U)on 11-06-2021 Urobilinogen Ql (U) Normal mg/dl Normal [facility] Work Phone: CNCOon 10-23-2021 CNCO Letter Text Normal [place] [facility] robina [place] C-REACTIVE PROTEIN (24430)Or dered By: [employer] on 10-04-2021 CRP [Mass/Vol] 2 mg/L Normal 0-10 Comprehens michelle [facility]; [facility] Work Phone: Comment on above: PATIENT NOT FASTINGP ERFORMED BY: [facility]Gcqbdu2365 [facility] [id number] CBC W/AUTO DIFF WBC (25245)O rdered By: [employer] on 10-04-2021 Basophils (Bld) [#/Vol] 0.1 10*3/uL Normal 0.0-0.2 [facility] Work Phone: Comment on above: PATIENT NOT FASTINGP ERFORMED BY: ELLIS Labcocolby Xagiqw8972 Graham RoadDublin [place] [id number] Basophils/100 WBC (Bld) 2 % Normal [facility]; [facility] Work Phone: Comment on above: PATIENT NOT FASTINGP ERFORMED BY: ELLIS [facility] Liknpb9477 Graham RoadDublin [place] [id number] Eosinophils (Bld) [#/Vol] 0.1 10*3/uL Normal 0.0-0.4 [facility]; [facility] Work Phone: Comment on above: PATIENT NOT FASTINGP ERFORMED BY: ELLIS [facility] Gtndha6155 Graham RoadDublin [place] [id number] Eosinophils/100 WBC (Bld) 2 % Normal [facility]; [facility] Work Phone: Comment on above: PATIENT NOT FASTINGP ERFORMED BY: ELLIS Boyce6370 [address] [facility] [id number] Erythrocyte distribution width (RBC) [Ratio] 13.4 % Normal 11.7-15.4 [facility]; [facility] Work Phone: Comment on above: PATIENT NOT FASTINGP ERFORMED BY: ELLIS Gotticocolby BoyceHwfqbs5218 Graham RoadAn[facility] Hospital [id number] Hematocrit (Bld) [Volume fraction] 46.3 % Normal 34.0-46.6 [facility]; [facility] Work Phone: Comment on above: PATIENT NOT FASTINGP ERFORMED BY: CB [facility] Vgwilg0485 Graham RoadAtrium Healthin [place] [id number] Hemoglobin (Bld) [Mass/Vol] 15.5 g/dL Normal 11.1-15.9 [facility]; [facility] Work Phone: Comment on above: PATIENT NOT FASTINGP ERFORMED BY: ELLIS [facility] Insabe7463 Graahm RoadDublin [place] [id number] Immature granulocytes (Bld) [#/Vol] 0.0 10*3/uL Normal 0.0-0.1 [facility]; [facility] Work Phone: Comment on above: PATIENT NOT FASTINGP ERFORMED BY: ELLIS Labcocolby BoyceLkykzq3578 [address] [facility] [place] [id number] Immature granulocytes/100 WBC (Bld) 0 % Normal [facility]; [facility] Work Phone: Comment on above: PATIENT NOT FASTINGP ERFORMED BY: [facility] Phldjv0246 [address] [facility] [place] [id number] Lymphocytes (Bld) [#/Vol] 1.6 10*3/uL Normal 0.7-3.1 [facility]; [facility] Work Phone: Comment on above: PATIENT NOT FASTINGP ERFORMED BY: [facility] Vubvyp8366 [address] [facility]in [place] [id number] Lymphocytes/100 WBC (Bld) 36 % Normal [facility]; [facility] Work Phone: Comment on above: PATIENT NOT FASTINGP ERFORMED BY: [facility] Uijzuz0467 [address] [facility] [id number] MCH (RBC) [Entitic mass] 30.3 pg Normal 26.6-33.0 [facility]; [facility] Work Phone: Comment on above: PATIENT NOT FASTINGP ERFORMED BY: Lablianet Bnuyeg1964 [address] [facility]in [place] [id number] MCHC (RBC) [Mass/Vol] 33.5 g/dL Normal 31.5-35.7 [facility]; [facility] Work Phone: Comment on above: PATIENT NOT FASTINGP ERFORMED BY: [facility]Tnytpn3816 [address] [facility]in [place] [id number] MCV (RBC) [Entitic vol] 90 fL Normal 79-97 [facility]; [facility] Work Phone: Comment on above: PATIENT NOT FASTINGP ERFORMED BY: [facility] Ifktlt5844 [address] [facility] [place] [id number] Monocytes (Bld) [#/Vol] 0.4 10*3/uL Normal 0.1-0.9 [facility]; [facility] Work Phone: Comment on above: PATIENT NOT FASTINGP ERFORMED BY: CB [facility] Tmxmmc1219 [address] RoadDublin [place] [id number] Monocytes/100 WBC (Bld) 9 % Normal [facility]; [facility] Work Phone: Comment on above: PATIENT NOT FASTINGP ERFORMED BY: CB [facility] Jlzyqh7813 [address] RoadDublin [place] [id number] Neutrophils (Bld) [#/Vol] 2.4 10*3/uL Normal 1.4-7.0 [facility]; [facility] Work Phone: Comment on above: PATIENT NOT FASTINGP ERFORMED BY: CB [facility] Vjvhui7085 Graham RoadDublin [place] [id number] Neutrophils/100 WBC (Bld) 51 % Normal [facility]; [facility] Work Phone: Comment on above: PATIENT NOT FASTINGP ERFORMED BY: CB [facility] Bjhisa7753 [address] RoadDublin [place] [id number] Platelets (Bld) [#/Vol] 190 10*3/uL Normal 150-450 [facility]; [facility] Work Phone: Comment on above: PATIENT NOT FASTINGP ERFORMED BY: CB [facility] Pfzeks9687 [address] RoadDublin [place] [id number] RBC (Bld) [#/Vol] 5.12 10*6/uL Normal 3.77-5.28 Compr ehensive Internal Medicine; [facility] Work Phone: Comment on above: PATIENT NOT FASTINGP ERFORMED BY: CB [facility] Cmphsw2552 [address] RoadDublin [place] [id number] WBC (Bld) [#/Vol] 4.6 10*3/uL Normal 3.4-10.8 Compre [facility]; [facility] Work Phone: Comment on above: PATIENT NOT FASTINGP ERFORMED BY: CB [facility] Tjyrnb4629 [address] RoadDublin [place] [id number] METABOLIC PANEL, COMPREHENSI VE ([id number])Ordered By: [employer] on 10-04-2021 Albumin [Mass/Vol] 4.9 g/dL Abnormal 3.8-4.8 [facility]; [facility] Work Phone: Comment on above: PATIENT NOT FASTINGP ERFORMED BY: CB [facility] Iesdfx9783 [address] RoadDublin [place] [id number] Albumin/Globulin [Mass ratio] 2.1 {ratio} Normal 1.2-2.2 [facility]; [facility] Work Phone: Comment on above: PATIENT NOT FASTINGP ERFORMED BY: CB [facility] Znzfvh0207 [address] RoadDublin [place] [id number] ALP [Catalytic activity/Vol] 97 U/L Normal 44-121 [facility]; [facility] Work Phone: Comment on above: PATIENT NOT FASTINGP ERFORMED BY: CB [facility] Odxrvg0322 [address] RoadDublin [place] [id number] ALT [Catalytic activity/Vol] 37 U/L Abnormal 0-32 [facility]; [facility] Work Phone: Comment on above: PATIENT NOT FASTINGP ERFORMED BY: CB [facility] Mpkfyy5888 [address] RoadDublin [place] [id number] AST [Catalytic activity/Vol] 28 U/L Normal 0-40 [facility]; [facility] Work Phone: Comment on above: PATIENT NOT FASTINGP ERFORMED BY: CB [facility] Avrsde6758 [address] RoadDublin [place] [id number] Bilirubin [Mass/Vol] 0.3 mg/dL Normal 0.0-1.2 [facility]; [facility] Work Phone: Comment on above: PATIENT NOT FASTINGP ERFORMED BY: CB [facility] Htivrq2741 [address] RoadDublin [place] [id number] Calcium [Mass/Vol] 10.4 mg/dL Abnormal 8.7-10.3 [facility]; [facility] Work Phone: Comment on above: PATIENT NOT FASTINGP ERFORMED BY: CB [facility] Yupkdm9694 [address] RoadAtrium Healthin [place] [id number] Chloride [Moles/Vol] 105 mmol/L Normal 96-106 [facility]; [facility] Work Phone: Comment on above: PATIENT NOT FASTINGP ERFORMED BY: ELLIS Labstewart ReedRbthmq0997 [address] RoadDublin [place] [id number] CO2 [Moles/Vol] 26 mmol/L Normal 20-29 Comprehen sive Internal Medicine; [facility] Work Phone: Comment on above: PATIENT NOT FASTINGP ERFORMED BY: ELLIS [facility] Lpnfvs3298 Graham RoadAtrium Healthin [place] [id number] Creatinine [Mass/Vol] 0.89 mg/dL Normal 0.57-1.00 [facility]; [facility] Work Phone: Comment on above: PATIENT NOT FASTINGP ERFORMED BY: ELLIS Lablianet Iciefb3269 [address] [facility] [id number] GFR/1.73 sq M.predicted among non-blacks MDRD (S/P/Bld) [Vol rate/Area] 71 mL/min/{1.73_m2} Normal Comprehensiv e Internal Medicine; [facility] Work Phone: Comment on above: PATIENT NOT FASTINGP ERFORMED BY: ELLIS Reedlin6370 [address] [facility] [id number] Globulin (S) [Mass/Vol] 2.3 g/dL Normal 1.5-4.5 [facility]; [facility] Work Phone: Comment on above: PATIENT NOT FASTINGP ERFORMED BY: ELLIS [facility] Ebiggr3912 Graham RoadDublin [place] [id number] Glucose [Mass/Vol] 106 mg/dL Abnormal 65-99 Compre [facility]; [facility] Work Phone: Comment on above: PATIENT NOT FASTINGP ERFORMED BY: ELLIS [facility] Kxqtuz3181 [address] [facility] HospitalDublin [place] [id number] Potassium [Moles/Vol] 5.1 mmol/L Normal 3.5-5.2 [facility]; [facility] Work Phone: Comment on above: PATIENT NOT FASTINGP ERFORMED BY: CB [facility] Pzykeb4113 [address] RoadDublin [place] [id number] Protein [Mass/Vol] 7.2 g/dL Normal 6.0-8.5 [facility]; [facility] Work Phone: Comment on above: PATIENT NOT FASTINGP ERFORMED BY: CB [facility] Jdaohy2292 [address] RoadDublin [place] [id number] Sodium [Moles/Vol] 144 mmol/L Normal 134-144 [facility]; [facility] Work Phone: Comment on above: PATIENT NOT FASTINGP ERFORMED BY: CB [facility] Dcwegc4054 [address] RoadDublin [place] [id number] Urea nitrogen [Mass/Vol] 13 mg/dL Normal 8-27 [facility]; [facility] Work Phone: Comment on above: PATIENT NOT FASTINGP ERFORMED BY: CB [facility] Xpcyju5766 [address] RoadDublin [place] [id number] Urea nitrogen/Creatinine [Mass ratio] 15 mg/mg Normal 12-28 [facility]; [facility] Work Phone: Comment on above: PATIENT NOT FASTINGP ERFORMED BY: CB [facility] Vrjjpr1294 [address] RoadDublin [place] [id number] Sed Rate Erythrocyte (90666) Ordered By: [employer] on 10-04-2021 ESR (Bld) [Velocity] 4 mm/h Normal 0-40 [facility]; [facility] Work Phone: Comment on above: PATIENT NOT FASTINGP ERFORMED BY: CB [facility] Vpbkac1905 [address] RoadDublin [place] [id number] Urinalysis, Office (23644)Or dered By: Kaycee Pierce on 03-04-2017 Bilirubin Ql (U) Negative Normal Comprehe nsive Internal Medicine Work Phone: Bilirubin Ql (U) Negative Normal Comprehe nsive [facility]; [facility] Work Phone: Glucose Test strip (U) [Mass/Vol] Negative Normal [facility] Work Phone: Glucose Test strip (U) [Mass/Vol] Negative Normal [facility]; [facility] Work Phone: Hemoglobin Ql (U) Hemolyzed Small Normal Co mprehensive [facility] Work Phone: Ketones Ql (U) Negative Normal Comprehens michelle [facility] Work Phone: Ketones Ql (U) Negative Normal Comprehens michelle [facility]; [facility] Work Phone: Leukocyte esterase Test strip Ql (U) Small Normal [facility] Work Phone: Nitrite Ql (U) Negative Normal Comprehens michelle [facility] Work Phone: Nitrite Ql (U) Negative Normal Comprehens michelle [facility]; [facility] Work Phone: pH (U) 5 [pH] Abnormal [facility] Work Phone: Protein Ql (U) Negative Normal Comprehens michelle [facility] Work Phone: Protein Ql (U) Negative Normal Comprehens michelle [facility]; [facility] Work Phone: Specific gravity (U) [Rel density] 1.000 1 Normal [facility] Work Phone: Urobilinogen (24H U) [Mass/Time] Normal Normal [facility] Work Phone: CBC, Platelets & Auto Diff ( 70202)Ordered By: [employer] on 04-20-2015 Basophils (Bld) [#/Vol] 0.1 {x10E3/uL} Normal 0.0-0.2 [facility] Work Phone: Comment on above: PATIENT NOT FASTINGP ERFORMED BY: [facility]CoJeff[facility]Wyjzfw0389 [facility] [id number] Information: [id number] Basophils (Bld) [#/Vol] 0.1 10*3/uL Normal 0.0-0.2 [facility]; [facility] Work Phone: Comment on above: PATIENT NOT FASTINGP ERFORMED BY: ELLIS GottiCocolby ReedJgclps8937 [facility] [id number] Information: [id number] Basophils/100 WBC (Bld) 1 % Normal [facility] Work Phone: Comment on above: PATIENT NOT FASTINGP ERFORMED BY: ELLIS GottiCoJason [place] [id number] [facility] [id number] Information: [id number],[id number] Eosinophils (Bld) [#/Vol] 0.1 {x10E3/uL} Normal 0.0-0.4 [facility] Work Phone: Comment on above: PATIENT NOT FASTINGP ERFORMED BY: ELLIS Sidhu Ouwtnr1588 [facility] [id number] Information: [id number] Eosinophils (Bld) [#/Vol] 0.1 10*3/uL Normal 0.0-0.4 [facility]; [facility] Work Phone: Comment on above: PATIENT NOT FASTINGP ERFORMED BY: ELLIS GottiCoJason V[place] [id number] [facility] [id number] Information: [id number] Eosinophils/100 WBC (Bld) 2 % Normal [facility] Work Phone: Comment on above: PATIENT NOT FASTINGP ERFORMED BY: Ana María[address] [id number] Information: [id number],[id number] Erythrocyte distribution width (RBC) [Ratio] 13.8 % Normal 12.3-15.4 [facility] Work Phone: Comment on above: PATIENT NOT FASTINGP ERFORMED BY: ELLIS LabCoJason Ville [id number] [facility] [id number] Information: [id number] Hematocrit (Bld) [Volume fraction] 44.1 % Normal 34.0-46.6 [facility] Work Phone: Comment on above: PATIENT NOT FASTINGP ERFORMED BY: CB LabHannah Ville 0549470 [facility] [id number] Information: [id number] Hemoglobin (Bld) [Mass/Vol] 14.9 g/dL Normal 11.1-15.9 [facility] Work Phone: Comment on above: PATIENT NOT FASTINGP ERFORMED BY: [address] [id number] Information: [id number] Immature granulocytes (Bld) [#/Vol] 0.0 {x10E3/uL} Normal 0.0-0.1 [facility] Work Phone: Comment on above: PATIENT NOT FASTINGP ERFORMED BY: ELLIS Sidhu Bwtjze49[address] [id number] Information: [id number] Immature granulocytes (Bld) [#/Vol] 0.0 10*3/uL Normal 0.0-0.1 [facility]; [facility] Work Phone: Comment on above: PATIENT NOT FASTINGP ERFORMED BY: Ana MaríaHannah [place] 0549470 [facility] [id number] Information: [id number] Immature granulocytes/100 WBC (Bld) 0 % Normal [facility] Work Phone: Comment on above: PATIENT NOT FASTINGP ERFORMED BY: [address] [id number] Information: [id number] Lymphocytes (Bld) [#/Vol] 1.7 {x10E3/uL} Normal 0.7-3.1 [facility] Work Phone: Comment on above: PATIENT NOT FASTINGP ERFORMED BY: ELLIS GottiHannah [place] 0549470 [facility] [id number] Information: [id number] Lymphocytes (Bld) [#/Vol] 1.7 10*3/uL Normal 0.7-3.1 [facility]; [facility] Work Phone: Comment on above: PATIENT NOT FASTINGP ERFORMED BY: ELLIS [facility]CoJeff[facility])Tryfyw2650 [facility] [id number] Information: [id number] Lymphocytes/100 WBC (Bld) 27 % Normal [facility] Work Phone: Comment on above: PATIENT NOT FASTINGP ERFORMED BY: LabCoJason V[place] [id number] [facility] [id number] Information: [id number] MCH (RBC) [Entitic mass] 29.4 pg Normal 26.6-33.0 [facility] Work Phone: Comment on above: PATIENT NOT FASTINGP ERFORMED BY: ELLIS GottiCox [facility]ett Loyaez7236 [facility] [id number] Information: [id number] MCHC (RBC) [Mass/Vol] 33.8 g/dL Normal 31.5-35.7 [facility] Work Phone: Comment on above: PATIENT NOT FASTINGP ERFORMED BY: Ana MaríaHannah [place] 0549470 [facility] [id number] Information: [id number] MCV (RBC) [Entitic vol] 87 fL Normal 79-97 [facility] Work Phone: Comment on above: PATIENT NOT FASTINGP ERFORMED BY: LabHannah V[place] 0549470 [facility] [id number] Information: [id number] Monocytes (Bld) [#/Vol] 0.5 {x10E3/uL} Normal 0.1-0.9 [facility] Work Phone: Comment on above: PATIENT NOT FASTINGP ERFORMED BY: [facility]CoJeff[facility])Opbpfi1293 [facility] [id number] Information: [id number] Monocytes (Bld) [#/Vol] 0.5 10*3/uL Normal 0.1-0.9 [facility]; [facility] Work Phone: Comment on above: PATIENT NOT FASTINGP ERFORMED BY: ELLIS Boyce6[address] [facility] [id number] Information: [id number] Monocytes/100 WBC (Bld) 8 % Normal [facility] Work Phone: Comment on above: PATIENT NOT FASTINGP ERFORMED BY: ELLIS Boyce6370 [address] [facility]kAn[facility] [id number] Information: [id number] Neutrophils (Bld) [#/Vol] 3.8 {x10E3/uL} Normal 1.4-7.0 [facility] Work Phone: Comment on above: PATIENT NOT FASTINGP ERFORMED BY: ELLIS Boyce6370 GrahamSaint [facility] [id number] Information: [id number] Neutrophils (Bld) [#/Vol] 3.8 10*3/uL Normal 1.4-7.0 [facility]; [facility] Work Phone: Comment on above: PATIENT NOT FASTINGP ERFORMED BY: ELLIS Boyce6370 [address] [facility] [id number] Information: [id number] Neutrophils/100 WBC (Bld) 62 % Normal [facility] Work Phone: Comment on above: PATIENT NOT FASTINGP ERFORMED BY: ELLIS Boyce6370 GrahamSaint [facility] [id number] Information: [id number] Platelets (Bld) [#/Vol] 191 {x10E3/uL} Normal 150-379 [facility] Work Phone: Comment on above: PATIENT NOT FASTINGP ERFORMED BY: ELLIS GottiCocolby ReedQmosaq8004 [address] [facility] [id number] Information: [id number] Platelets (Bld) [#/Vol] 191 10*3/uL Normal 150-379 [facility]; [facility] Work Phone: Comment on above: PATIENT NOT FASTINGP ERFORMED BY: ELLIS GottiCox Monett Qidqxf5020 [facility] [id number] Information: [id number] RBC (Bld) [#/Vol] 5.07 {x10E6/uL} Normal 3.77-5.28 [facility] Internal Medicine Work Phone: Comment on above: PATIENT NOT FASTINGP ERFORMED BY: ELLIS GottiCox Monett Tiiwmp1544 [facility] [id number] Information: [id number] RBC (Bld) [#/Vol] 5.07 10*6/uL Normal 3.77-5.28 [facility]; [facility] Work Phone: Comment on above: PATIENT NOT FASTINGP ERFORMED BY: Ana MaríaCox Monett Jheyfg40[address] [id number] Information: [id number] WBC (Bld) [#/Vol] 6.1 {x10E3/uL} Normal 3.4-10.8 [facility] Internal Medicine Work Phone: Comment on above: PATIENT NOT FASTINGP ERFORMED BY: ELLIS GottiCox Monett Bledpa7453 [facility] [id number] Information: [id number] WBC (Bld) [#/Vol] 6.1 10*3/uL Normal 3.4-10.8 [facility]; [facility] Work Phone: Comment on above: PATIENT NOT FASTINGP ERFORMED BY: [facility]6370 [facility] [id number] Information: [id number] HELICOBACTER PYLORI ANTIBODY PROFILE IgG, IgM, IgA (05084)Ordered By: [employer] on 04-20-2015 H. pylori IgG IA Qn (S) {index_val} Normal 0.0-0.8 [facility] Work Phone: Comment on above: Negative <0.9 Indete rminate 0.9 - 1.0 Positive >1.0 PATIENT NOT FASTINGP ERFORMED BY: [facility] Azbanl3262 Graham RoadAn[facility] [id number] H. pylori IgG IA Qn (S) {index_val} Normal 0.0-0.8 [facility]; [facility] Work Phone: Comment on above: Negative <0.9 Indete rminate 0.9 - 1.0 Positive >1.0 PATIENT NOT FASTINGP ERFORMED BY: [facility] Pduqdf1692 Rgaham RoadAnson Community Hospital [id number] AMYLASE ([id number])Ordered By: Saleem ystem Emergency Man on 06-26-2014 Amylase [Catalytic activity/Vol] 55 U/L Normal 25-115 [facility] Work Phone: Comment on above: stat; Test performed at:[facility] Zastwneswr[address] [place] [address] LIPASE ([id number])Ordered By: Asher stem Emergency Man on 06-26-2014 Lipase [Catalytic activity/Vol] 169 U/L Normal 70-290 [facility] Work Phone: Comment on above: stat; Test performed at:[facility] Jfagamqovl6720 [facility] [place] [address] Vital Signs Date Time Vital Sign Value Performing Clinician Facility 12-16-2021 16:18-0400 Body height 168.91 cm Yamile Beverly DO Work Phone: [facility]; [facility] Work Phone: Comment on above: 180/110 12-16-2021 16:18-0400 Body mass index (BMI) [Ratio] 31.96 kg/m2 Yamile Beverly DO Work Phone: [facility]; [facility] Work Phone: Comment on above: 180/110 12-16-2021 16:18-0400 Body surface area Derived from formula 2.02 m2 Yamile Beverly DO Work Phone: [facility]; [facility] Work Phone: Comment on above: 180/110 12-16-2021 16:18-0400 Body temperature 97.5 [degF] Yamile Molinaon DO Work Phone: [facility]; [facility] Work Phone: Comment on above: Method: Infrared 180/110 12-16-2021 16:18-0400 Body weight 91.17 kg Yamile Paul DO Work Phone: [facility] Work Phone: Comment on above: 180/110 12-16-2021 16:18-0400 Diastolic blood pressure 110 mm[Hg] Yamile Molinaon DO Work Phone: [facility]; [facility] Work Phone: Comment on above: Patient Position: Sitting; Cuff Location : Left Arm; Cuff Size: Standard 180/110 12-16-2021 16:18-0400 Heart rate 87 /min Yamile Paul DO Work Phone: [facility]; [facility] Work Phone: Comment on above: Pattern: Regular 180/110 12-16-2021 16:18-0400 Respiratory rate 18 /min Yamile Paul DO Work Phone: [facility]; [facility] Work Phone: Comment on above: Pattern: Unlabored 180/110 12-16-2021 16:18-0400 SaO2% (BldA) [Mass fraction] 97 % Yamile Molinaon DO Work Phone: [facility]; [facility] Work Phone: Comment on above: Room air 180/110 12-16-2021 16:18-0400 Systolic blood pressure 174 mm[Hg] Yamile Molinaon DO Work Phone: [facility]; [facility] Work Phone: Comment on above: Patient Position: Sitting; Cuff Location : Left Arm; Cuff Size: Standard 180/110 11-06-2021 07:02-0400 Diastolic blood pressure 78 mm[Hg] [facility] Work Phone: 11-06-2021 07:02-0400 Heart rate 64 /min [facility] Work Phone: 11-06-2021 07:02-0400 Respiratory rate 15 /min [facility] Work Phone: 11-06-2021 07:02-0400 SaO2% (BldA) [Mass fraction] 98 % [facility] Work Phone: 11-06-2021 07:02-0400 Systolic blood pressure 174 mm[Hg] [facility] Work Phone: 11-06-2021 03:43-0400 Body height 170.18 cm [facility] Work Phone: 11-06-2021 03:43-0400 Body mass index (BMI) [Ratio] 35.5 kg/m2 [facility] Work Phone: 11-06-2021 03:43-0400 Body temperature 97.5 [degF] [facility] Work Phone: 11-06-2021 03:43-0400 Body weight 102.9 kg [facility] Work Phone: 10-04-2021 11:15-0400 Body height 168.91 cm Chelsey Boateng [facility] Work Phone: 10-04-2021 11:15-0400 Body mass index (BMI) [Ratio] 31.96 kg/m2 Chelsey Gravius [facility] Work Phone: 10-04-2021 11:15-0400 Body surface area Derived from formula 2.02 m2 Chelsey Gravius [facility]; [facility] Work Phone: 10-04-2021 11:15-0400 Body temperature 97.3 [degF] Chelsey Boateng [facility]; [facility] Work Phone: Comment on above: Method: Infrared 10-04-2021 11:15-0400 Body weight 91.17 kg Chelsey Boateng [facility] Work Phone: 10-04-2021 11:15-0400 Diastolic blood pressure 82 mm[Hg] Chelsey Boateng [facility]; [facility] Work Phone: Comment on above: Patient Position: Sitting; Cuff Location : Left Arm; Cuff Size: Standard 10-04-2021 11:15-0400 Heart rate 87 /min Chelsey Boateng [facility]; [facility] Work Phone: Comment on above: Pattern: Regular 10-04-2021 11:15-0400 Respiratory rate 16 /min Chelsey Boateng [facility]; [facility] Work Phone: Comment on above: Pattern: Unlabored 10-04-2021 11:15-0400 SaO2% (BldA) [Mass fraction] 98 % Chelsey Boateng [facility]; [facility] Work Phone: Comment on above: Room air 10-04-2021 11:15-0400 Systolic blood pressure 122 mm[Hg] Chelsey Boateng [facility]; [facility] Work Phone: Comment on above: Patient Position: Sitting; Cuff Location : Left Arm; Cuff Size: Standard 03-04-2017 10:54-0500 BMI (Body Mass Index) 32.27 kg/m2 Kaycee Slarb [employer] [facility] Work Phone: 03-04-2017 10:54-0500 Body Temperature 98.1 [degF] Kaycee Slarb [employer] ENGINE[employer] [facility] Work Phone: 03-04-2017 10:54-0500 Body weight 92.08 kg Kaycee Slarb [employer] ENGINE[employer] [facility] Work Phone: 03-04-2017 10:54-0500 BP Diastolic 84 mm[Hg] Kaycee Slarb [employer] ENGINE[employer] [facility] Work Phone: Comment on above: Patient Position: Sitting; Cuff Location : Left Arm; Cuff Size: Standard 03-04-2017 10:54-0500 BP Systolic 132 mm[Hg] Kaycee Slarb [employer] ENGINE[employer] [facility] Work Phone: Comment on above: Patient Position: Sitting; Cuff Location : Left Arm; Cuff Size: Standard 03-04-2017 10:54-0500 BSA (Body Surface Area) 2.02 m2 Kaycee Pierce LPN [facility] Work Phone: 03-04-2017 10:54-0500 Height 168.91 cm Kaycee Pierce LPN [facility] Work Phone: 03-04-2017 10:54-0500 Pulse (Heart Rate) 70 /min Kaycee Pierce LPN [facility] Work Phone: Comment on above: Pattern: Regular 03-04-2017 10:54-0500 Pulse Oximetry 98 % Yamile Beverly [facility] Work Phone: Comment on above: Room air 03-04-2017 10:54-0500 Respiratory Rate 16 /min Kaycee Pierce LPN [facility] Work Phone: Comment on above: Pattern: Unlabored 03-04-2017 10:54-0500 SaO2% (BldA) [Mass fraction] 98 % Kaycee Pierce [employer] ENGINE[employer] [facility]; [facility] Work Phone: Comment on above: Room air 04-20-2015 13:09-0500 BMI (Body Mass Index) 32.47 kg/m2 Vanna Adams [facility] Work Phone: 04-20-2015 13:09-0500 Body weight 92.65 kg [facility] Work Phone: 04-20-2015 13:09-0500 BP Diastolic 90 mm[Hg] [facility] Work Phone: Comment on above: Patient Position: Sitting; Cuff Location : Left Arm; Cuff Size: Standard 04-20-2015 13:09-0500 BP Systolic 142 mm[Hg] Vanna Adams [facility] Work Phone: Comment on above: Patient Position: Sitting; Cuff Location : Left Arm; Cuff Size: Standard 04-20-2015 13:09-0500 BSA (Body Surface Area) 2.03 m2 Vanna Adams [facility] Work Phone: 04-20-2015 13:09-0500 Height 168.91 cm Vanna Adams [facility] Work Phone: 04-20-2015 13:09-0500 Pulse (Heart Rate) 94 /min Vanna Adams [facility] Work Phone: Comment on above: Pattern: Regular 04-20-2015 13:09-0500 Pulse Oximetry 98 % Yamile Paul [facility] Work Phone: Comment on above: Room air 04-20-2015 13:09-0500 Respiratory Rate 16 /min Vanna Adams [facility] Work Phone: Comment on above: Pattern: Unlabored 04-20-2015 13:09-0500 SaO2% (BldA) [Mass fraction] 98 % Vanna Adams [facility]; [facility] Work Phone: Comment on above: Room air 06-26-2014 14:08-0400 BMI (Body Mass Index) 32.47 kg/m2 Yamile Paul [facility] Work Phone: 06-26-2014 14:08-0400 Body Temperature 96.9 [degF] Yamile Paul [facility] Work Phone: 06-26-2014 14:08-0400 Body weight 92.65 kg Yamile Paul [facility] Work Phone: 06-26-2014 14:08-0400 BP Diastolic 102 mm[Hg] Yamile Paul [facility] Work Phone: Comment on above: Patient Position: Sitting; Cuff Location : Left Arm; Cuff Size: Standard 06-26-2014 14:08-0400 BP Systolic 140 mm[Hg] Yamile Paul [facility] Work Phone: Comment on above: Patient Position: Sitting; Cuff Location : Left Arm; Cuff Size: Standard 06-26-2014 14:08-0400 BSA (Body Surface Area) 2.03 m2 Yamile Paul [facility] Work Phone: 06-26-2014 14:08-0400 Height 168.91 cm Yamile Paul [facility] Work Phone: 06-26-2014 14:08-0400 Pulse (Heart Rate) 84 /min Yamile Paul [facility] Work Phone: Comment on above: Pattern: Regular 06-26-2014 14:08-0400 Pulse Oximetry 98 % Yamile Paul [facility] Work Phone: Comment on above: Room air 06-26-2014 14:08-0400 Respiratory Rate 18 /min Yamile Paul [facility] Work Phone: Comment on above: Pattern: Unlabored 06-26-2014 14:08-0400 SaO2% (BldA) [Mass fraction] 98 % Yamile Paul DO Work Phone: [facility]; [facility] Work Phone: Comment on above: Room air 09-14-2008 09:55-0400 Body Temperature 98.3 [degF] Gina Crespo [facility] Work Phone: Comment on above: Method: Undefined 09-14-2008 09:55-0400 Body weight 0 kg Gina Crespo [facility] Work Phone: 09-14-2008 09:55-0400 BP Diastolic 90 mm[Hg] Gina Crespo [facility] Work Phone: Comment on above: Patient Position: Sitting; Cuff Location : Left Arm; Cuff Size: Large 09-14-2008 09:55-0400 BP Systolic 136 mm[Hg] Gina Crespo [facility] Work Phone: Comment on above: Patient Position: Sitting; Cuff Location : Left Arm; Cuff Size: Large 09-14-2008 09:55-0400 Head Circumference 0 cm Yamile Paul [facility] Work Phone: 09-14-2008 09:55-0400 Head Occipital-frontal circumference 0 cm Gina Lynndenissebalbina [facility]; [facility] Work Phone: 09-14-2008 09:55-0400 Height 0 cm Gina Crespo [facility] Work Phone: 09-14-2008 09:55-0400 Pulse (Heart Rate) 86 /min Gina Crespo [facility] Work Phone: Comment on above: Pattern: Regular 09-14-2008 09:55-0400 Respiratory Rate 18 /min Gina Lynndenissebalbina [facility] Work Phone: Comment on above: Pattern: Undefined 03-02-2007 11:48-0500 Body Temperature 97.9 [degF] Azucena Mcclendon SHAHLA [facility] Work Phone: Comment on above: Method: Oral 03-02-2007 11:48-0500 Body weight 87.66 kg Azucena Hakan G[facility] Work Phone: 03-02-2007 11:48-0500 BP Diastolic 72 mm[Hg] Azucena Sulenard [facility] Work Phone: Comment on above: Patient Position: Sitting; Cuff Location : Left Arm; Cuff Size: Standard 03-02-2007 11:48-0500 BP Systolic 138 mm[Hg] Azucena Sulenard GALE [facility] Work Phone: Comment on above: Patient Position: Sitting; Cuff Location : Left Arm; Cuff Size: Standard 03-02-2007 11:48-0500 Head Circumference 0 cm Yamile Beverly [facility] Work Phone: 03-02-2007 11:48-0500 Head Occipital-frontal circumference 0 cm Azucena Hakan [facility] Work Phone: 03-02-2007 11:48-0500 Height 0 cm Azucena Mcclendon SHAHLA [facility] Work Phone: 03-02-2007 11:48-0500 Pulse (Heart Rate) 68 /min Azucena Mcclendon SHAHLA [facility] Work Phone: Comment on above: Pattern: Regular 03-02-2007 11:48-0500 Respiratory Rate 17 /min Azucena Mcclendon SHAHLA [facility] Work Phone: Comment on above: Pattern: Unlabored 03-01-2007 08:13-0500 BMI (Body Mass Index) 31.48 kg/m2 Pinky Carlisle RN [facility] Work Phone: 03-01-2007 08:13-0500 Body weight 89.81 kg Pinky Carlisle RN [facility] Work Phone: 03-01-2007 08:13-0500 BP Diastolic 60 mm[Hg] Pinky Carlisle RN [facility] Work Phone: Comment on above: Patient Position: Sitting; Cuff Location : Left Arm; Cuff Size: Standard 03-01-2007 08:13-0500 BP Systolic 118 mm[Hg] Pinky Carlisle RN [facility] Work Phone: Comment on above: Patient Position: Sitting; Cuff Location : Left Arm; Cuff Size: Standard 03-01-2007 08:13-0500 BSA (Body Surface Area) 2 m2 Pinky Carlisle RN [facility] Work Phone: 03-01-2007 08:13-0500 Head Circumference 0 cm Yamile Paul [facility] Work Phone: 03-01-2007 08:13-0500 Head Occipital-frontal circumference 0 cm iPnky Carlisle RN [facility]; [facility] Work Phone: 03-01-2007 08:13-0500 Height 168.91 cm Pinky Carlisle RN [facility] Work Phone: 03-01-2007 08:13-0500 Pulse (Heart Rate) 60 /min Pinky Carlisle RN [facility] Work Phone: Comment on above: Pattern: Regular 03-01-2007 08:13-0500 Respiratory Rate 16 /min Pinky Carlisle RN [facility] Work Phone: Comment on above: Pattern: Unlabored 02-26-2007 11:14-0500 BMI (Body Mass Index) 31.48 kg/m2 Pinky Carlisle RN [facility] Work Phone: 02-26-2007 11:14-0500 Body weight 89.81 kg Pinky Carlisle RN [facility] Work Phone: 02-26-2007 11:14-0500 BP Diastolic 70 mm[Hg] Pinky Carlisle RN [facility] Work Phone: Comment on above: Patient Position: Sitting; Cuff Location : Right Arm; Cuff Size: Large 02-26-2007 11:14-0500 BP Systolic 120 mm[Hg] Pinky Carlisle RN [facility] Work Phone: Comment on above: Patient Position: Sitting; Cuff Location : Right Arm; Cuff Size: Large 02-26-2007 11:14-0500 BSA (Body Surface Area) 2 m2 Pinky Carlisle RN [facility] Work Phone: 02-26-2007 11:14-0500 Head Circumference 0 cm Yamile Paul [facility] Work Phone: 02-26-2007 11:14-0500 Head Occipital-frontal circumference 0 cm Pinky Carlisle RN [facility]; [facility] Work Phone: 02-26-2007 11:14-0500 Height 168.91 cm Pinky Carlisle RN [facility] Work Phone: 02-26-2007 11:14-0500 Pulse (Heart Rate) 80 /min Pinky Carlisle RN [facility] Work Phone: Comment on above: Pattern: Regular 02-26-2007 11:14-0500 Respiratory Rate 20 /min Pinky Carlisle RN [facility] Work Phone: Comment on above: Pattern: Unlabored 02-25-2007 11:53-0500 BMI (Body Mass Index) 31.48 kg/m2 Pinky Carlisle RN [facility] Work Phone: 02-25-2007 11:53-0500 Body Temperature 98.9 [degF] Pinky Carlisle RN [facility] Work Phone: Comment on above: Method: Oral 02-25-2007 11:53-0500 Body weight 89.81 kg Pinky Carlisle RN [facility] Work Phone: 02-25-2007 11:53-0500 BP Diastolic 90 mm[Hg] Pinky Carlisle RN [facility] Work Phone: Comment on above: Patient Position: Sitting; Cuff Location : Left Arm; Cuff Size: Standard 02-25-2007 11:53-0500 BP Systolic 132 mm[Hg] Pinky Carlisle RN [facility] Work Phone: Comment on above: Patient Position: Sitting; Cuff Location : Left Arm; Cuff Size: Standard 02-25-2007 11:53-0500 BSA (Body Surface Area) 2 m2 Pinky Carlisle RN [facility] Work Phone: 02-25-2007 11:53-0500 Head Circumference 0 cm Yamile Paul [facility] Work Phone: 02-25-2007 11:53-0500 Head Occipital-frontal circumference 0 cm Pinky Carlisle RN [facility]; [facility] Work Phone: 02-25-2007 11:53-0500 Height 168.91 cm Pinky Carlisle RN [facility] Work Phone: 02-25-2007 11:53-0500 Pulse (Heart Rate) 82 /min Pinky Carlisle RN [facility] Work Phone: Comment on above: Pattern: Regular 02-25-2007 11:53-0500 Respiratory Rate 18 /min Pinky Carlisle RN [facility] Work Phone: Comment on above: Pattern: Unlabored 01-08-2007 09:57-0500 BMI (Body Mass Index) 31.48 kg/m2 Gina Crespo [facility] Work Phone: 01-08-2007 09:57-0500 Body Temperature 97.8 [degF] Gina Crespo [facility] Work Phone: Comment on above: Method: Oral 01-08-2007 09:57-0500 Body weight 89.81 kg Gina Crespo [facility] Work Phone: 01-08-2007 09:57-0500 BP Diastolic 92 mm[Hg] Gina Crespo [facility] Work Phone: Comment on above: Patient Position: Sitting; Cuff Location : Left Arm; Cuff Size: Standard 01-08-2007 09:57-0500 BP Systolic 138 mm[Hg] Gina Crespo [facility] Work Phone: Comment on above: Patient Position: Sitting; Cuff Location : Left Arm; Cuff Size: Standard 01-08-2007 09:57-0500 BSA (Body Surface Area) 2 m2 Gina Crespo [facility] Work Phone: 01-08-2007 09:57-0500 Head Circumference 0 cm Yamile Beverly [facility] Work Phone: 01-08-2007 09:57-0500 Head Occipital-frontal circumference 0 cm Gina Crespo [facility]; [facility] Work Phone: 01-08-2007 09:57-0500 Height 168.91 cm Gina Crespo [facility] Work Phone: 01-08-2007 09:57-0500 Pulse (Heart Rate) 84 /min Gina Crespo [facility] Work Phone: Comment on above: Pattern: Regular 01-08-2007 09:57-0500 Respiratory Rate 16 /min Gina Crespo [facility] Work Phone: Comment on above: Pattern: Unlabored Encounters Encounter Date Encounter Type Care Provider Facility Start: 06-27-2024 End: 06-27-2024 ambulatory Yamile Paul Facility:[facility] [place] Start: 06-08-2024 End: 06-08-2024 ambulatory [facility] Facility:[facility] [place] Start: 03-21-2024 End: 03-21-2024 Emergency department patient visit Yamile Paul Facility:[facility] Start: 12-24-2021 ambulatory Yamile Paul DO [facility] Start: 12-16-2021 End: 12-17-2021 Office outpatient visit 15 minutes Yamile Paul DO Work Phone: [facility] Start: 11-06-2021 End: 11-06-2021 Phone Encounter Yamile Paul DO Work Phone: [facility] Start: 11-06-2021 End: 11-06-2021 Emergency department patient visit [facility]gency [facility] Start: 10-22-2021 End: 11-05-2021 Phone Encounter Yamile Paul DO Work Phone: [facility] Start: 10-04-2021 End: 10-04-2021 Office outpatient new 20 minutes Yamile Paul DO Work Phone: [facility] Start: 03-04-2017 End: 03-04-2017 Office outpatient visit 15 minutes Yamile Corea [facility] Start: 04-20-2015 End: 04-20-2015 Office outpatient visit 15 minutes Yamile Corea [facility] Start: 06-26-2014 End: 06-26-2014 Office outpatient visit 25 minutes Yamile Corea [facility] Start: 09-14-2008 End: 09-14-2008 Office outpatient visit 15 minutes Yamile Corea [facility] Start: 03-02-2007 End: 03-02-2007 Office outpatient visit 10 minutes Yamile Corea [facility] Start: 03-01-2007 End: 03-01-2007 Patient encounter procedure Yamile Corea [facility] Start: 02-26-2007 End: 02-26-2007 Patient encounter procedure Yamile Corea [facility] Start: 02-25-2007 End: 02-25-2007 Patient encounter procedure Yamile Corea [facility] Start: 01-08-2007 End: 01-08-2007 Patient encounter procedure Yamile Paul [facility] Start: 11-19-2006 End: 11-19-2006 Historical Summary Yamile Corea [employer] al Medicine Procedures Date Procedure Procedure Detail Performing Clinician Start: 11-06-2021 End: 11-06-2021 Emergency Department Summary Procedure Note: See Note; NOTES: [facility] Medical Records Department [address] [place] [address] Emergency Department Summary 11/06/21 MR#: [id number] Acct: [id number] Name: DAVIS LUNA Rep #: [id number] : [id number] 66 From: Gina Cancino MD PCP: Dr. Yamile Beverly, DO Status:DEP ER Location: ED HPI History of Present Illness Chief Complaint: Flank Pain Detail of Chief Complaint: Right flank pain Informant: patient Onset/Context/Timing Onset: Today Current Severity: Moderate Maximum Severity: Severe Narrative Narrative: Patient present secondary to right flank pain that woke her from sleep at 2 AM this morning. She does have a history of kidney stones with similar pain. She has not yet taken anything for pain. She has required lithotripsy in the past for her stones. [facility] Medical History Kidney stones Home Medications ibuprofen 800 mg tablet 800 mg PO Q8H PRN pain #10 tabs 11/06/21 [Rx Last Taken Unknown] ondansetron 4 mg disintegrating tablet 4 mg PO Q8H PRN nausea and vomiting #10 tabs 11/06/21 [Rx Last Taken Unknown] oxycodone-acetaminophen 5 mg-325 mg tablet (Percocet) 1 tab PO Q6H PRN pain 3 days #10 tabs 11/06/21 [Rx Last Taken Unknown] tamsulosin 0.4 mg capsule (Flomax) 0.4 mg PO DAILY #7 caps 11/06/21 [Rx Last Taken Unknown] Allergy/AdvReac Type Severity Reaction Status Date / Time adhesive tape Allergy Rash Verified 11/06/21 03:43 diphenhydramine Allergy Angioedema Verified 11/06/21 03:43 [From Benadryl] famotidine [From Pepcid] Allergy Anaphylaxis Verified 11/06/21 03:43 Penicillins Allergy Rash Verified 11/06/21 03:43 pineapple Allergy Hives Verified 11/06/21 03:43 ranitidine [From Zantac] Allergy Anaphylaxis Verified 11/06/21 03:43 sucralfate [From Carafate] Allergy Anaphylaxis Verified 11/06/21 03:43 hydrocodone AdvReac Other Verified 11/06/21 03:43 hydromorphone [From Dilaudid] AdvReac Vomiting Verified 11/06/21 03:43 Social History Smoking Status: Never smoker ROS ROS ED Constitutional Constitutional ED: Denies chills or fever(s) Eyes Eyes: Denies change in vision or discharge from eye(s) ENT ENT ED: Denies discharge from eye(s), rhinorrhea or sore throat Cardiovascular Cardiovascular: Denies chest pain or palpitations Respiratory/Chest Respiratory/Chest: Denies cough or dyspnea Gastrointestinal Gastrointestinal: Reports abdominal pain; Denies diarrhea, nausea or vomiting Genitourinary Genitourinary ED: Denies difficulty urinating or dysuria Musculoskeletal Musculoskeletal: Reports back pain; Denies extremity pain Integumentary Denies Abrasions or rash Neurologic Neurologic: Denies headache(s) or weakness Psychiatric Psychiatric: Denies anxiety or depression Allergic/Immunologic Allergic/Immunologic ED: Denies lip swelling or urticaria EXAM Physical Exam Const Vital Signs: 11/06/21 03:43 11/06/21 05:37 Temperature 97.5 F L Temperature Source Temporal Pulse Rate 79 64 Respiratory Rate 18 15 Blood Pressure 172/101 H 174/78 H Blood Pressure Mean 124 110 Pulse Ox 97 98 Oxygen Delivery Method Room Air Room Air Positive well nourished and well developed General Appearance ED: well developed HEENT Reports normocephalic and head/scalp atraumatic Eyes PERRL and EOMs intact bilaterally Neck supple Chest Wall inspection of chest normal and palpation of chest normal Resp normal respiratory effort and clear to auscultation bilaterally Cardio regular rate and regular rhythm GI non-tender Auscultation: hypoactive bowel sounds Palpation: soft Back/Spine General Back: CVA tenderness right Extremity normal to inspection Neuro oriented x3 and no sensory deficits noted Sensorium / Orientation: alert Motor Exam: strength 5/5 throughout Psych mental status grossly normal Skin no rashes or lesions noted MDM MDM MDM Narrative Medical decision making narrative: Patient was given Toradol, Zofran, morphine, IV fluids. Lab work, urinalysis, CT flank obtained. Lab Data Attestation: I reviewed the patient's lab results. Labs: Laboratory Results - last 24 hr 11/06/21 11/06/21 11/06/21 01:40 01:40 01:40 WBC 6.0 RBC 5.08 Hgb 15.5 H Hct 46.7 MCV 91.9 MCH 30.5 MCHC 33.2 RDW Std Deviation 45.2 H RDW Coeff of Betty 13.2 Plt Count 226 MPV 12.3 H Immature Gran % (Auto) 0.200 Neut % (Auto) 40.1 L Lymph % (Auto) 46.1 H [place] % (Auto) 9.7 Eos % (Auto) 2.2 Baso % (Auto) 1.7 H Absolute Neuts (auto) 2.4 Absolute Lymphs (auto) 2.76 Nucleated RBC % 0 Sodium 139 Potassium 4.1 Chloride 105 Carbon Dioxide 25.0 Anion Gap 9 BUN 16 Creatinine 0.94 Estim Creat Clear Calc 57.25 Est GFR (MDRD) Af Amer 77 Est GFR (MDRD) Non-Af 63 BUN/Creatinine Ratio 17.1 Glucose 111 H Calcium 9.3 Urine Color Straw Urine Clarity Clear Urine pH 7.0 Ur Specific [place] 1.010 Urine Protein Negative Urine Glucose (UA) Normal Urine Ketones Negative Urine Occult Blood Negative Urine Nitrite Negative Urine Bilirubin Negative Urine Urobilinogen Normal Ur Leukocyte Esterase 100 H Urine RBC 0 SEEN Urine WBC 5-10 SEEN Ur Squamous Epith Cells 0 SEEN Ur Transition Epith Cell 0-5 SEEN Ur Renal Epithelial Cell 0-5 SEEN Urine Bacteria RARE Urine Mucus 0 SEEN Radiography Diagnostic Testing: Clinical Impression(s) from Imaging Studies Abdomen/Pelvis CT 11/06/21 03:46 IMPRESSION: Moderately severe right hydronephrosis due to a 2 mm stone within the distal ureter at the UVJ. Mildly enlarged and fatty liver. Sigmoid diverticulosis without evidence for acute diverticulitis. Electronically Signed: Mathieu Jimenez MD at 4:40 EDT , Treatment and Re-Evaluation Narrative: Patient's pain did improve but did recur. She was given a second round of pain medication along with a dose of Flomax. CBC and chemistry studies unremarkable. Renal function is normal. Urinalysis reveals 5-10 white cells with no sign of infection. CT scan of the flank reveals moderately severe right hydronephrosis with a 2 mm stone in the distal ureter at the UVJ. At this time patient's pain is improved but she does still have waves of spasm. She will be given prescriptions for Percocet, Zofran, ibuprofen, Flomax. She will follow-up with Dr. Oropeza who she has seen in the past. Return instructions are also provided. Discharge Plan Triage Chief Complaint: Flank Pain ED Provider: Gina Cancino Dx/Rx/DC Orders Clinical Impression: Right kidney stone Instructions: ED Kidney Stone w/ Colic Prescriptions: New ibuprofen 800 mg tablet 800 mg PO Q8H PRN (Reason: pain) Qty: 10 0RF oxycodone-acetaminophen [Percocet] 5-325 mg tablet 1 tab PO Q6H PRN (Reason: pain) 3 Days Qty: 10 0RF ondansetron 4 mg tablet,disintegrating 4 mg PO Q8H PRN (Reason: nausea and vomiting) Qty: 10 0RF tamsulosin [Flomax] 0.4 mg capsule 0.4 mg PO DAILY Qty: 7 0RF Primary Care Provider: Yamile Paul Referrals: Chidi Oropeza MD [Med Staff - Active Staff] - 3-5 Days if not improving Yamile Paul DO [Primary Care Provider] - Disposition Disposition: Home, Self Care What to do if you have Problems For any increased pain, shortness of breath, bleeding, nausea or vomiting, chest pain, or any unexpected problems, contact your Primary Care Provider. Call [facility] ([phone]) or report to the closest Emergency Room. Call 911 if necessary. 11/06/21 0740 <Electronically signed by Gina Cancino MD> Cosigner Signature (if applicable): CC: Dr. Yamile Paul DO Signed Yamile Paul DO Work Phone: Start: 11-06-2021 End: 11-06-2021 Abdomen/Pelvis without Cont Procedure Note: See Note; NOTES: [facility] Imaging Services [address] [place] [address] Abdomen/Pelvis without Cont MR#: [id number] Acct: [id number] Name: DAVIS LUNA Rep #: [id number] : 1955 F 66 From: Mathieu clements MD PCP: Dr. Yamile Paul DO Status: REG ER Study: Abdomen/Pelvis without Cont Date of Exam: 10/24 06/14 Exam# [id number] Ordering Dr: Gina Cancino MD EXAM: CT ABDOMEN AND PELVIS WITHOUT INTRAVENOUS CONTRAST CLINICAL INDICATION: Kidney Stone TECHNIQUE: Helically acquired images were obtained of the abdomen and pelvis without intravenous contrast. This CT exam was performed using one or more of the following dose reduction techniques: automated exposure control, adjustment of the mA and/or kV according to patient size, and/or use of iterative reconstruction technique. This report was created using [employer] report [employer] technology. RADIATION DOSE: Total DLP: 956.13 mGy-cm. COMPARISON: CT of 03/23/2017. FINDINGS: LOWER THORAX: Minimal linear scarring at the lung bases. No pleural effusion. No coronary artery calcification is visualized. BONES: Lower thoracic and lumbar degenerative disc disease. Severe degenerative disc space narrowing with vacuum disc phenomenon, mild endplate sclerosis and marginal osteophytes at L5/S1. Extensive lumbar facet arthritis with slight anterolisthesis of L4 on L5. Thecal sac is effaced with a triangular configuration, measuring about 6 mm in AP diameter, at L4/5 due to the anterolisthesis, annular bulging, facet hypertrophy and ligamentum flavum calcification. Inferior neural foramina are narrowed bilaterally at L4/5 and L5/S1 by broad-based annular bulging, facet hypertrophy and posterolateral osteophytes. ABDOMEN: LIVER: Liver demonstrates fatty infiltration with minimal focal fatty sparing near the gallbladder. Right hepatic lobe measures 17.2 cm in cephalocaudal dimension. GALLBLADDER AND BILE DUCTS: Unremarkable. No calcified gallstones. No gallbladder distention or wall edema. No intra- or extrahepatic biliary ductal dilation. PANCREAS: Unremarkable. No focal cystic mass. SPLEEN: Unremarkable. Normal size without focal cystic or solid mass. ADRENALS: Unremarkable. No nodules. KIDNEYS AND URETERS: Interval development of moderately severe right-sided pelvocaliectasis; moderate right hydroureter is also present, secondary to a 2 mm stone which lies within the distal ureter at the UVJ. A cluster of multiple small calcifications again noted within the dilated right renal lower pole collecting system. The left kidney is unremarkable. No left renal calculi or left-sided hydronephrosis. STOMACH AND BOWEL: Numerous sigmoid diverticula are present without evidence for acute diverticulitis. No distended small bowel loops. Stomach is decompressed. No periduodenal inflammatory changes. PELVIS: APPENDIX: Not well seen. No evidence of acute appendicitis. BLADDER: Urinary bladder is nearly empty. REPRODUCTIVE: Normal size uterus. No adnexal mass. ABDOMEN and PELVIS: INTRAPERITONEAL SPACE: Unremarkable. No ascites or other fluid collection. No free air. SOFT TISSUES: Small fat filled umbilical hernia. VASCULATURE: Minimally calcific abdominal aorta. Abdominal aorta is non-dilated. LYMPH NODES: Unremarkable. No enlarged lymph nodes. CT/Abdomen/Pelvis without Cont IMPRESSION: Moderately severe right hydronephrosis due to a 2 mm stone within the distal ureter at the UVJ. Mildly enlarged and fatty liver. Sigmoid diverticulosis without evidence for acute diverticulitis. Electronically Signed: Mathieu Jimenez MD at 4:40 EDT , CC: Dr. Gina Cancino MD; Dr. Yamile Paul DO Heel Seat Sander: Signed Yamile Paul DO Work Phone: Start: 11-06-2021 CT of abdomen and pelvis without contrast Start: 09-30-2018 End: 09-30-2018 Abdomen Single View Comments: See Note; NOTES: [facility] Imaging Services [address] [place] [address] Abdomen Single View MR#: [id number] Acct: [id number] Name: DAVIS LUNA Rep #: [id number] : 1955 F 63 From: Gianfranco Dang MD PCP: Yamile Paul DO Status: REG CLI Study: Abdomen Single View Date of Exam: 09/30/18 Exam# [id number] Ordering Dr: Chidi Oropeza MD STUDY: X-RAY - ABDOMEN/PELVIS REASON FOR EXAM: Female, 63 years old. Dysuria. TECHNIQUE: Single AP view of the abdomen / pelvis. COMPARISON: None. FINDINGS: Normal visualized lung bases. There is an unremarkable bowel gas pattern. There is no demonstrated free abdominal air. The visualized liver, spleen and kidneys are grossly normal in size and morphology. There are calcified phleboliths in the pelvis. Normal visualized osseous structures. RAD/Abdomen Single View IMPRESSION: Normal x-ray examination of the abdomen and pelvis. Electronically Signed: Gianfranco Dang MD at 13:25 EDT , Service support , CC: Chidi Oropeza MD; Yamile Paul DO Heel Seat Sander: Signed Yamile Paul Start: 12-25-2017 End: 12-27-2017 Abdomen Single View Comments: See Note; NOTES: [facility] Imaging Services [address] [place] [address] Abdomen Single View MR#: [id number] Acct: [id number] Name: DAVIS LUNA Rep #: [id number] : 1955 F 62 From: Remberto Avendano DO PCP: Yamile Paul DO Status: REG CLI Study: Abdomen Single View Date of Exam: 12/25/17 Exam# [id number] Ordering Dr: Chidi Oropeza MD STUDY: X-RAY - ABDOMEN/PELVIS REASON FOR EXAM: Female, 62 years old. Right flank pain TECHNIQUE: 2 views COMPARISON: None. FINDINGS: Normal visualized lung bases. There is an unremarkable bowel gas pattern. There is no demonstrated free abdominal air. There are numerous small calcific densities over the right renal status suspicious for calculi. Probable phleboliths in the pelvis. Normal soft tissue structures. Normal visualized osseous structures. RAD/Abdomen Single View IMPRESSION: Possible calculi in the right kidney. Please correlate with ultrasound or CT if needed. Electronically Signed: Remberto Avendano DO at 9:17 EST Tel [phone], Service support , CC: Chidi Oropeza MD; Yamile Paul DO Heel Seat Sander: Signed Yamile Paul Start: 04-21-2017 End: 04-21-2017 Abdomen Single View Comments: See Note; NOTES: [facility] Imaging Services [address] [place] [address] Abdomen Single View MR#: [id number] Acct: [id number] Name: DAVIS LUNA Rep #: [id number] : 1955 F 62 From: Angelo Kwong MD PCP: Yamile Paul DO Status: REG CLI Study: Abdomen Single View Date of Exam: 04/21/17 Exam# [id number] Ordering Dr: Chidi Oropeza MD STUDY: X-RAY - ABDOMEN/PELVIS REASON FOR EXAM: Female, 62 years old. Right sided kidney stones. Recent lithotripsy. TECHNIQUE: Two AP supine views of the abdomen and pelvis. COMPARISON: Comparison is made with prior study dated June 27, 2014. FINDINGS: Normal visualized lung bases. There is a moderate amount of colonic fecal material. Fragmented calculus is seen in the lower pole calyx of the right kidney. There are calcified phleboliths in the pelvis. Normal visualized osseous structures. RAD/Abdomen Single View IMPRESSION: The previously seen calculus in the lower pole of the right kidney is fragmented at this time. Electronically Signed: Angelo Kwong MD at 15:43 EST Tel [phone], Service support , CC: Chidi Oropeza MD; Yamile Paul DO Heel Seat Sander: Signed Yamile Paul Start: 04-03-2017 End: 04-03-2017 Operative Report Comments: See Note; NOTES: [facility] Medical Records Department [address] [place] [address] Operative Report 04/03/17 1231 MR#: [id number] Acct: [id number] Name: DAVIS LUNA Rep #: [id number] : 1955 61 From: Chidi Oropeza MD PCP: Yamile Paul DO Status: REG SDC Y Location: [place] [address] Problem List (1) Right kidney stone Status: Acute Report of Operation Date of Procedure: 04/03/17 Pre-Operative Diagnosis: Right kidney stone Post-Operative Diagnosis: Same Surgery/Procedure Performed:: Right extracorporeal shockwave lithotripsy Description of Surgical Findings:: 61-year-old female taken back to the operating room at the smooth induction of general anesthesia she was placed supine on the operating room table we then localize the stone in the F2 focal point of the machine and proceeded with shockwave lithotripsy. Patient was given a total of 3000 shockwaves power from 3-5 and the stone was monitored during the entire treatment and in the beginning of the treatment stone broke up and at the end of the treatment the stone broke up fairly well. No stent was placed. Patient's anesthetic was reversed and she is taken back to the PACU in good condition. Type of Anesthesia:: General Drains: none - Admit VTE Documentation VTE Present on Admission: No VTE Mechan Device Prophylaxis: SCD's VTE Pharm Prophylaxis ordered?: No Reason prophylaxis not ordered:: Treatment Not Indicated 04/03/17 1233 <Electronically signed by Chidi Oropeza MD> Date Chidi Oropeza MD CC: Chidi Oropeza MD; Yamile Paul DO Signed Yamile Paul Start: 04-03-2017 End: 04-03-2017 Discharge Instruction Comments: See Note; NOTES: [facility] Medical Records Department [address] [place] [address] Instructions for Home/Discharge Instructions 04/03/17 1128 MR#: [id number] Acct: [id number] Name: DAVIS LUNA Rep #: [id number] : 1955 61 From: Chidi Oropeza MD PCP: Yamile Paul DO Status: REG [facility] [place] Discharge Diet: Light diet - advance as tolerated Discharge Activity: Return to Normal Activity Suture Line Care: Avoid Pulling/Pushing, Avoid Pinching/Bending Allergies/Adverse Reactions: Allergies adhesive tape Allergy (Verified 03/27/17 09:12) Rash diphenhydramine [From Benadryl] Allergy (Verified 03/27/17 09:22) Angioedema famotidine [From Pepcid] Allergy (Verified 03/27/17 09:22) Anaphylaxis Penicillins Allergy (Verified 03/27/17 09:12) Rash pineapple Allergy (Verified 03/27/17 09:12) Hives ranitidine [From Zantac] Allergy (Verified 03/27/17 09:22) Anaphylaxis sucralfate [From Carafate] Allergy (Verified 03/27/17 09:22) Anaphylaxis hydrocodone Adverse Reaction (Verified 03/27/17 09:12) Other CRIES, EMOTIONAL hydromorphone [From Dilaudid] Adverse Reaction (Verified 03/27/17 09:12) Vomiting Medications to take at Discharge Ibuprofen [Motrin] 400 mg PO DAILY 03/27/17 Ibuprofen [Motrin] 400 mg PO Q4H PRN PRN #14 tab 04/03/17 The following prescriptions were given: Ibuprofen [Motrin] 400 mg PO Q4H PRN PRN #14 tab PRN Reason: Pain Primary Care Physician: Yamile Paul DO [Primary Care Provider] - Please Follow Up With: Chidi Oropeza MD When: please call to make an appointment. 04/03/17 1129 <Electronically signed by Chidi Oropeza MD> Date Chidi Oropeza MD CC: Yamile Urbano Start: 03-23-2017 End: 03-23-2017 Abdomen/Pelvis without Cont Comments: See Note; NOTES: [facility] Imaging Services [address] [place] [address] Abdomen/Pelvis without Cont MR#: [id number] Acct: [id number] Name: DAVIS LUNA Rep #: [id number] : 1955 F 61 From: Angelo Kwong MD PCP: Yamile Paul DO Status: REG CLI Study: Abdomen/Pelvis without Cont Date of Exam: 03/23/17 Exam# [id number] Ordering Dr: Karmen Mcclain PLANT CONTROL AIDE-C STUDY: CT ABDOMEN AND PELVIS WITHOUT CONTRAST REASON FOR EXAM: Female, 61 years old. History of right hydronephrosis with hematuria and right upper quadrant pain. RADIATION DOSAGE (If Supplied By Facility): CTDIvol = ( 15.57 ) mGy, DLP = ( 770.01 ) mGycm TECHNIQUE: Transaxial images were obtained from the dome of the diaphragm to the symphysis pubis without oral contrast, and without intravenous contrast. Sagittal and coronal images were reconstructed. Individualized dose optimization techniques were used for this CT. COMPARISON: Comparison is made with prior study dated February 25, 2007. FINDINGS: Minimal increased linear markings in the anterior aspect of the right middle lobe suggestive of linear scarring. The visualized portions of the heart are within normal limits. Normal liver. The cyst seen in the right lobe of liver on ultrasound is not well seen on the unenhanced scan. Normal gallbladder and extrahepatic biliary system. Normal spleen. Normal pancreas. Normal bilateral adrenal glands. There are multiple right intrarenal calculi. The largest is in the lower pole and it measures 6.2 mm. Mild degree of right hydronephrosis. Normal left kidney. Normal visualized stomach. Normal small intestine. There are multiple colonic diverticula consistent with diverticulosis. The patient is status post appendectomy. There is scattered atherosclerotic calcification of the abdominal aorta, without a demonstrated aneurysm. Normal inferior vena cava. Normal retroperitoneum. Normal urinary bladder. Normal abdominal wall. There are degenerative changes of the visualized lumbar spine. Grade 1 anterior listhesis of L4 on L5. CT/Abdomen/Pelvis without Cont IMPRESSION: Nonobstructive right intrarenal calculi. Mild right hydronephrosis. Electronically Signed: Angelo Kwong MD at 10:35 EST Tel [phone], Service support , CC: Yamile Paul DO; Karmen Mcclain NP Heel Seat Sander: Signed Yamile Paul Work Phone: Start: 03-05-2017 End: 03-05-2017 Abdomen Limited Comments: See Note; NOTES: [facility] Imaging Services [address] [place] [address] Abdomen Limited MR#: [id number] Acct: [id number] Name: DAVIS LUNA Rep #: [id number] : 1955 F 61 From: Angelo Kwong MD PCP: dAore Monroy NP Status: REG CLI Study: Abdomen Limited Date of Exam: 03/05/17 Exam# [id number] Ordering Dr: Adore Monroy STUDY: ABDOMINAL ULTRASOUND - RIGHT UPPER QUADRANT REASON FOR VISIT: Female, 61 years old. Right upper quadrant pain. TECHNIQUE: Ultrasound evaluation of the right upper quadrant was performed with real-time and static suárez-scale imaging. TECHNICAL QUALITY: Adequate. COMPARISON: Comparison is made with prior examination dated June 27, 2014. FINDINGS: Liver: The liver measures 15.1 cm. There is increased echogenicity consistent with fatty infiltration. The bile ducts are within normal limits. There is hepatic color flow. The direction of portal flow is hepatopetal. There is a 1.5 cm x 2 cm x 1.1 cm cyst in the anterior medial aspect of the right lobe of the liver. Gallbladder: Normal distended gallbladder. The gallbladder wall measures 2.4 mm. There is a negative sonographic Verde's sign. There is no pericholecystic fluid. There are no gallstones. Common Bile Duct (C.B.D.): The common bile duct measures 3.3 mm. Pancreas: Normal size of the head, body and tail of the pancreas. There is normal echogenicity of the pancreas. There is no demonstrated pancreatic mass or cyst. Right Kidney: Normal size of the right kidney. The right kidney measures 10.6 cm x 4.3 cm x 4.4 cm. Normal renal cortex. The right cortex measures 1.0 cm. There is no demonstrated renal mass or cyst. There is mild hydronephrosis of the right kidney. US/Abdomen Limited IMPRESSION: Fatty infiltration of the liver. Small cyst in the right lobe. Mild degree of right hydronephrosis. Electronically Signed: Angelo Kwong MD at 14:06 EST Tel [phone], Service support , CC: Adore Monroy NP Heel Seat Sander: Signed Adore Monroy Work Phone: Start: 04-20-2015 End: 04-20-2015 Emergency Department Summary Comments: See Note; NOTES: [facility] Medical Records Department [address] [place] [address] Emergency Department Summary 04/20/15 1749 MR#: [id number] Acct: [id number] Name: DAVIS LUNA Rep #: [id number] : 1955 60 From: Eligio Freire MD PCP: Sandra Kong DO Status: [facility] ER History of Present Illness Chief Complaint: Allergic Reaction Informant: Patient, Family, Significant Other Onset: Today Context: Sudden Onset - At approximately 1600 Timing: Continuous Quality: Throat swelling, anxiousness, itchy and blister roof of mouth Current Severity: Moderate Maximum Severity: Moderate Worsened by: Unknown Relieved by: Nothing Narrative: Patient is a elderly woman who presents because of difficulty breathing, swelling of her throat , itchiness and blister roof of mouth. Patient states she took ranitidine and Carafate at 1515. Symptoms started at 1600. She took an antihistamine. She states the blister has resolved. She reports feeling anxious and having difficulty breathing. She is able to swallow. She denies prior reaction. She denies any orthostatic symptoms. She denies any chest discomfort. She was unaware that she had a rash. Prior similar symptoms: No Recent Illness/Hospitalization: Yes Past Medical History - Allergies and Home Meds Allergies/Adverse Reactions: Allergies pineapple Allergy (Verified 06/30/14 08:10) Hives hydrocodone Adverse Reaction (Verified 06/30/14 08:10) Other CRIES, EMOTIONAL Home Medications: Home Medications Medication Instructions Recorded TraMADol [Ultram (G)] 50 mg PO Q6H PRN PRN #14 tablet 06/30/14 DiphenhydrAMINE [Benadryl] 25 mg PO . QID #16 capsule 04/20/15 Famotidine [Pepcid] 20 mg PO BID #60 tablet 04/20/15 Prednisone 40 mg PO DAILY #10 tablet 04/20/15 Primary Care Physician: Yamile Paul DO [STAFF PHYSICIAN] - Past Medical History: - - GERD versus peptic ulcer disease Surgical History: noncontributory Lives: Spouse/ Significant Other Smoking Status: Never smoker Alcohol: Rare Drugs: None Review of Systems General: Denies: Chills, Fever, Sweats, Weight loss Eyes: Denies: Visual changes - bilaterally, Blurred Vision - bilaterally, Diplopia ENT: Denies: Bilateral ear pain, Rhinorrhea, Sore throat Cardiovascular: Reports: Palpitations. Denies: Chest pain, Heart racing Respiratory: Reports: Dyspnea. Denies: Cough, Sputum, Dyspnea on exertion, Orthopnea Gastrointestinal: Denies: Abdominal pain, Nausea, Vomiting, Diarrhea, Melena, Hematochezia Genitourinary: Denies: Dysuria, Hematuria, Frequency Musculoskeletal: Denies: Myalgias, Arthralgias, Neck pain, Back pain, Swelling, Extremity Pain, -, - Skin: Denies: Rash Neurological: Denies: Headache, Weakness, Numbness Psych: Reports: Anxiety Endocrine: Denies: Polyuria, Polydipsia, Heat intolerance, Cold intolerance, -, - Hematologic: Denies: Easy bruising, Easy bleeding, Lymphadenopathy, -, - Allergy: Reports: Swelling of the mouth, Swelling of the tongue. Denies: Uticaria Physical Exam Vital Signs/Narrative: Vital Signs Temp Pulse Resp BP Pulse Ox 04/20/15 17:45 115 19 168/156 99 04/20/15 17:41 98.1 F 112 18 99 Inital Vital Signs reviewed: Yes - Doubt blood pressure reading is accurate General: Well nourished, Well developed, Obese Head: Normocephalic, Atraumatic. Negative for: Trauma, Tenderness Eyes: Perrl, EOMI. Negative for: Pale conjunctiva - There are no mucosal lesions noted., Scleral icterus ENT: Moist mucous membranes, No rhinorrhea, - - There are no gingival or mucosal lesions noted.. Negative for: Nasal congestion, Sinus tenderness Cardiovascular: Regular rhythm, No murmurs, Normal S1, Normal S2, Tachycardia Respiratory: CTA bilaterally, Chest nontender. Negative for: No distress Abdomen: Soft, Nontender, Nondistended, Normal bowel sounds Back: Nontender, Normal Inspection Extremities: Nontender, No edema Skin: Normal color, No Trauma, Rash - Diffuse confluent blanching erythematous rash. Negative for: Cyanosis, Diaphoresis, Jaundice Neurological: Alert, Oriented x3, Cranial nerves II-XII grossly intact, Normal Strength, Normal Sensation Psychological: - - Patient appears anxious and reports she is anxious. Diagnostic/Tx/Re-eval - Medical Decision Making Patient's history and physical findings are concerning for allergic reaction. 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 Patient was treated with H1, H2 florentin and Solu-Medrol. She was placed on a monitor and will be observed. Patient was reassessed several times during her ER stay. After a 4 hour observation she had resolution of all of her symptoms. She was discharged with a prescription for Pepcid, prednisone and Benadryl. She is instructed not to take the Carafate slurry or ranitidine. Disposition: Home ED Disposition - Plan for ED Patient: Disposition: Home or Assisted Living Chief Complaint: Allergic Reaction Diagnosis: Anaphylactic reaction Instructions: ED Allergic Reaction, Drug Prescriptions: DiphenhydrAMINE [Benadryl] 25 mg PO . QID #16 capsule Prednisone 40 mg PO DAILY #10 tablet Famotidine [Pepcid] 20 mg PO BID #60 tablet Referrals: Yamile Paul DO [STAFF PHYSICIAN] - Additional Instructions: Do not take any of the Carafate slurry or any of the ranitidine tablets What to do if you have Problems For any increased pain, shortness of breath, bleeding, nausea or vomiting, chest pain, or any unexpected problems, contact your doctor. Call [facility] ([phone]) or report to the closest Emergency Room. Call 911 if necessary. 04/20/152151 <Electronically signed by Eligio Freire MD> Date Eligio Freire MD Cosigner Signature (If Indicated): Date CC: Sandra Kong DO Yamile Paul Start: 07-05-2014 End: 07-05-2014 Operative Report Comments: See Note; NOTES: [facility] Medical Records Department [address] [place] [address] Operative Report MR#: [id number] Acct: [id number] Name: DAVIS LUNA Rep #: [id number] : 1955 59 From: Victor Manuel Ornelas MD PCP: Sandra Kong DO Status: [facility] DATE OF SERVICE: 06/30/2014 PREOPERATIVE DIAGNOSIS: Right renal lithiasis. POSTOPERATIVE DIAGNOSIS: Right renal lithiasis. PROCEDURE: Extracorporeal shockwave lithotripsy. INDICATIONS: A 59-year-old female who has been having some irritative symptoms, blood in urine, was found to have a fairly large 11 x 12 mm right renal lithiasis, is brought at this time for removal. DESCRIPTION OF PROCEDURE: The patient was taken to the operating room where she had her antibiotics and scuds in place before coming to the operating room. She was placed under general anesthesia by LMA by Marilyn Burris and Dr. Cole. She was then positioned under the unit and extracorporeal shockwave lithotripsy was initiated, went to a level 7, eventually to 120 shocks per minute and had 2500 shocks total. Stone broken into half and moved up in the kidney, both fragments were in upper pole and then came back down to the mid pole, but I was able to follow these during the entire procedure. At the end of procedure at about 2300 shocks, it was essentially no stones visible. Once another 200 in the areas of the stone had been and at the end of procedure, the head was moved away, and by fluoroscopy I did not visualize any significant stone. Procedure was terminated at this point. I elected not to place a stent. The patient was then awakened and taken to recovery room in stable condition. Victor Manuel Ornelas MD T: LATOYA JOB: [id number] 07/05/14 1137 <Electronically signed by Victor Manuel Ornelas MD> Date Victor Manuel Ornelas MD CC: Sandra Kong DO; Victor Manuel rOnelas MD Date Dictated: 06/30/14931 Date Transcribed: 06/30/14931 Heel Seat Sander: Signed Yamile Paul Start: 07-04-2014 End: 07-04-2014 12 lead ECG Comments: See Note; NOTES: [facility] Cardiovascular Services [address] [place] [address] 12 Lead EKG 06/30/14 0728 MR#: [id number] Acct: [id number] Name: DAVIS LUNA Rep #: [id number] : 1955 59 From: Victor Manuel Steele MD Attending Dr: Victor Manuel Ornelas MD Status: [facility] Ordering Dr: Fahad Cole MD Date: 06/30/14 Location: [facility] Sex: F C Admitted: Test Reason : PRE-OP Blood Pressure : / mmHG Vent. Rate : 075 BPM Atrial Rate : 075 BPM P-R Int : 148 ms QRS Dur : 076 ms QT Int : 398 ms P-R-T Axes : 045 -02 050 degrees QTc Int : 444 ms Normal sinus rhythm Normal ECG Confirmed by IVETTE MACIEL, VICTOR MANUEL ([id number]), editor continuity and script OSVALDO MACHUCA ([id number]) on 07/04/2014 10:25:42 AM Referred By: EDINSON Confirmed By:VICTOR MANUEL STEELE MD 07/04/14 1025 Date Victor Manuel Steele MD CC: Sandra Fast DO Date Dictated: 06/30/14727 Date Transcribed: 06/30/14727 Heel Seat Sander: Signed Yamileazar Molinaon Start: 06-30-2014 End: 06-30-2014 Discharge Instruction Comments: See Note; NOTES: [facility] Medical Records Department [address] [place] [address] Instructions for Home/Discharge Instructions 06/30/14925 MR#: [id number] Acct: [id number] Name: CHAR LUNADENISSE Aiken Rep #: [id number] : 1955 59 From: Victor Manuel Ornelas MD PCP: Sandra Kong DO Status: REG SDC Discharge Diet: No Restrictions - PUSH FLUIDS Discharge Activity: Return to Normal Activity, May Drive - STARTING TOMORROW, May Not Drive - TODAY Return to work on:: 07/03/14 Call your doctor if you observe: Fever of 101 or Higher, Uncontrolled pain, - - EXPECT BLOOD IN URINE Allergies/Adverse Reactions: Allergies pineapple Allergy (Verified 06/30/14 08:10) Hives hydrocodone Adverse Reaction (Verified 06/30/14 08:10) Other CRIES, EMOTIONAL Medications to take at Discharge No Known/Unobtainable [No Known Home Medications] Please Follow Up With: Victor Manuel Ornelas - [phone] When: CALL SOON FOR AN APPT IN FEW WKS 06/30/14926 <Electronically signed by Victor Manuel Ornelas MD> Date Victor Manuel Ornelas MD CC: Sandra Fast DO Yamile Paul Start: 06-27-2014 End: 06-28-2014 Abdomen Single View Comments: See Note; NOTES: [facility] Imaging Services [address] [place] [address] Radiology Report MR#: [id number] Acct: [id number] Name: DAVIS LUNA Rep #: [id number] : 1955 F 59 From: Angelo Kwong MD PCP: Fast DO,Sandra Status: REG CLI Study: Abdomen Single View Date of Exam: 06/27/14 Exam# [id number] Ordering Dr: Victor Manuel Ornelas MD STUDY: X-RAY - ABDOMEN/PELVIS REASON FOR EXAM: Female, 59 years old. Right renal calculus. TECHNIQUE: Two AP supine views of the abdomen and pelvis. COMPARISON: None. FINDINGS: Normal visualized lung bases. There is a moderate amount of colonic fecal material. There is a 6.2 mm calculus in the midportion of the right kidney. This may be within the right renal pelvis. There are calcified phleboliths in the pelvis. There are diffuse degenerative changes of the visualized lumbar spine. IMPRESSION: 6.2 mm calculus is seen in the midportion of the right kidney most likely at the level of the renal pelvis. Electronically Signed: Angelo Kwong MD at 16:02 EDT Tel [phone], Service support [phone], RAD/Abdomen Single View IMPRESSION: 6.2 mm calculus is seen in the midportion of the right kidney most likely at the level of the renal pelvis. Electronically Signed: Angelo Kwong MD at 16:02 EDT Tel [phone], Service support [phone], CC: Sandra Kong DO; Victor Manuel Ornelas MD Heel Seat Sander: Signed Sandra Mcpherson Phone: Start: 06-27-2014 End: 06-27-2014 Gallbladder Comments: See Note; NOTES: [facility] Imaging Services [address] [place] [address] Ultrasound Report MR#: [id number] Acct: [id number] Name: DAVIS LUNA Rep #: [id number] : 1955 F 59 From: Angelo Kwong MD PCP: Sandra Kong DO Status: REG CLI Study: Gallbladder Date of Exam: 06/27/14 Exam# [id number] Ordering Dr: Sandra Kong DO STUDY: ABDOMINAL ULTRASOUND - RIGHT UPPER QUADRANT REASON FOR VISIT: Female, 59 years old. Right upper quadrant pain. TECHNIQUE: Ultrasound evaluation of the right upper quadrant was performed with real-time and static suárez-scale imaging. TECHNICAL QUALITY: Adequate. COMPARISON: None. FINDINGS: Liver: The liver measures 15.8 cm. There is increased echogenicity consistent with fatty infiltration. The bile ducts are within normal limits. There is hepatic color flow. The direction of portal flow is hepatopetal. There is a 1.4 cm x 1.3 cm x 1.1 cm cyst in the superior anterior portion of the right lobe of the liver. Gallbladder: Normal distended gallbladder. The gallbladder wall measures 2.2 mm. There is a negative sonographic Verde's sign. There is no pericholecystic fluid. There are no gallstones. Common Bile Duct (C.B.D.): The common bile duct measures 2.4 mm. Pancreas: Normal size of the head, body and tail of the pancreas. There is normal echogenicity of the pancreas. There is no demonstrated pancreatic mass or cyst. Right Kidney: Normal size of the right kidney. The right kidney measures 11.1 cm x 4.1 cm x 4.6 cm. Normal renal cortex. The right cortex measures 1.1 cm. There is no demonstrated renal mass or cyst. There is mild hydronephrosis of the right kidney. There is an 8 mm x 7 mm x 6 mm calculus in the right renal pelvis. IMPRESSION: Fatty infiltration of the liver. Mild right hydronephrosis and 8 mm x 7 mm x 6 mm calculus in the right renal pelvis. Electronically Signed: Angelo Kwong MD at 12:56 EDT Tel [phone], Service support [phone], CC: Sandra Kong DO Heel Seat Sander: Signed Sandra Kong Work Phone: Start: 10-27-2003 Mammography Mammogram Chelsey draper COMFORT STATION ATTENDANT Start: 02-23-1998 Arthroscopy arthroscopy Chelsey draper COMFORT STATION ATTENDANT Comment on above: left knee H/O: surgery Tonsillectomy Chelsey Gravius COMFORT STATION ATTENDANT H/O: surgery Tonsillectomy Chelsey Gravius COMFORT STATION ATTENDANT History of appendectomy Appendectomy Chelsey Gravius COMFORT STATION ATTENDANT History of appendectomy Appendectomy Chelsey Gravius COMFORT STATION ATTENDANT Plan of Treatment Date Care Activity Detail Author Start: 12-16-2021 Procedure Education Eprescribe d prescriptions (G8553) [facility]; [facility] Work Phone: Start: 12-16-2021 Provider Instruction s for Treatment BP MONITORING - SELF [facility] Work Phone: Start: 10-04-2021 Procedure Education Eprescribe d prescriptions (G8553) [facility]; [facility] Work Phone: Start: 10-04-2021 Provider Instruction s for Treatment *Abd Pain Red Flags [facility]; [facility] Work Phone: Start: 10-04-2021 C-reactive protein C-REACTIVE PROTEIN (16559) [facility]; [facility] Work Phone: Start: 10-04-2021 Sedimentation rate r bc non-automated Sed Rate Erythrocyte (56670) [facility]; [facility] Work Phone: Start: 10-04-2021 Comprehensive metabo lic panel METABOLIC PANEL, COMPREHENSIVE (75553) [facility]; [facility] Work Phone: Start: 10-04-2021 Blood count complete auto&auto difrntl wbc CBC W/AUTO DIFF WBC (58407) [facility]; [facility] Work Phone: Start: 03-04-2017 Procedure Education Eprescribe d prescriptions (G8553) [facility] Work Phone: Start: 03-04-2017 Provider Instruction s for Treatment Follow up if no improvement or if symptoms worsen [facility] Work Phone: Start: 04-20-2015 Patient Education Heartburn *: acid indigestion [facility] Work Phone: Start: 04-20-2015 Procedure Education Eprescribe d prescriptions (G8553) [facility] Work Phone: Start: 04-20-2015 Provider Instruction s for Treatment Follow up in 2 weeks [facility] Work Phone: Start: 06-26-2014 Blood count complete auto&auto difrntl wbc CBC W/AUTO DIFF WBC (61302) [facility] Work Phone: Comment on above: stat Start: 06-26-2014 Comprehensive metabo lic panel METABOLIC PANEL, COMPREHENSIVE (03357) [facility] Work Phone: Comment on above: stat Start: 06-26-2014 Patient Education Abdominal Pa in: abdominal pain [facility] Work Phone: Start: 06-26-2014 Procedure Education Eprescribe d prescriptions (G8553) [facility] Work Phone: Start: 09-14-2008 Nursing Care Education STERI STRIPS [facility] Work Phone: Start: 03-02-2007 Provider Instruction s for Treatment FOLLOW UP IN 1 WEEK [facility] Work Phone: Start: 03-01-2007 Provider Instruction s for Treatment FOLLOW UP TOMORROW [facility] Work Phone: Start: 02-26-2007 Provider Instruction s for Treatment Reviewed Diagnostic Tests [facility] Work Phone: Start: 02-25-2007 Provider Instruction s for Treatment FOLLOW UP TOMORROW [facility] Work Phone: Start: 02-25-2007 Cul bact xcpt urine blood/stool aerobic isol GAL CULTURE-OTHER (09148) [facility] Work Phone: Start: 01-08-2007 Urnls dip stick/tabl et rgnt auto w/o microscopy URINALYSIS W/O MICRO (27876) [facility] Work Phone: Start: 01-08-2007 Assay of thyroid stimulating hormone tsh TSH (66095) [facility]; [facility] Work Phone: Start: 01-08-2007 TSH Qn TSH (38177) [facility] Work Phone: Start: 01-08-2007 Lipid panel LIPID PANEL (03896) [facility] Work Phone: Start: 01-08-2007 Comprehensive metabo lic panel METABOLIC PANEL, COMPREHENSIVE (47670) [facility] Work Phone: Start: 01-08-2007 Blood count manual c ell count each CBC WITH MANUAL DIFF (22492) [facility] Work Phone: Patient Education ED Kidney Ston e w/ Colic [facility] Work Phone: Patient referral [facility] Work Phone: [facility] Work Phone: [facility] Work Phone: [facility] Work Phone: [facility] Work Phone: [facility] Work Phone[facility] Work Phone: [facility] Work Phone[facility] Work Phone: [facility] Work Phone: [facility] Work Phone: Immunizations Immunization Date Immunization Notes Care Provider Yesenia butler 01-08-2007 influenza, seasonal, injectable Yamile Paul [facility] Work Phone: Comment on above: Lot #:[id number] ion date:07/31Amount given:0.5mlRoute: IMSite given:lt delGiven by: TERE Mcnally Payers Date Payer Category Payer Private Health Insurance I [id number] 2024 Self-pay [id number] 2021 Medicare [id number] 2017 Unknown [id number] 1955 Unknown [id number] Unknown Unknown [id number] Unknown [id number] Unknown [id number] Unknown [id number] Social History Date Type Detail Facility Living Situation Living Situation [facility] Work Phone: Comment on above: Tobacco use: Tobacco use: [facility] Work Phone: Tobacco use: Tobacco use: [facility] Work Phone: Start: 11-06-2021 Tobacco smoking status NHIS Unknown if ever smoked [facility] Work Phone: Start: 04-20-2015 Rare [facility] Work Phone: Start: 04-20-2015 None [facility] Work Phone: Start: 04-20-2015 Spouse/ Signif icant Other [facility] Work Phone: Start: 1955 Sex Assigned At Female [facility] Work Phone: Evaluation note Note Date & Type Note Facility Evaluation note No assessment information availa ble [facility] Work Phone: Instructions Note Date & Type Note Facility Instructions Name Patient Instructions Indication:BMI 31.0-31.9,adult Start: 2 Instruction Type:Provider Instructions for Treatment How to Access Health Information Online using Patient Portal and [employer] Apps Indication:BMI 31.0-31.9,adult Start: 2 Instruction Type:Patient Education How to access health information online Indication:Right upper quadrant pain Start: 8 Instruction Type:Patient Education How to access health information online - Detail Indication:Right upper quadrant pain Start: 8 Instruction Type:Patient Education Patient Instructions Indication:Right upper quadrant pain Start: 8 Instruction Type:Provider Instructions for Treatment How to access health information online Indication:Gastritis Start: 6 Instruction Type:Patient Education How to access health information online - Detail Indication:Gastritis Start: 6 Instruction Type:Patient Education Patient Instructions Indication:Gastritis Start: 6 Instruction Type:Provider Instructions for Treatment Patient Instructions Indication:Abdominal pain, acute, right upper quadrant Start:26-Jun-2014 Instruction Type:Provider Instructions for Treatment [facility]; [facility] Work Phone: Instructions Note Date & Type Note Facility Instructions Name Patient Instructions Indication:BMI 31.0-31.9,adult Start: 2 Instruction Type:Provider Instructions for Treatment How to Access Health Information Online using Patient Portal and [employer] Apps Indication:BMI 31.0-31.9,adult Start: 2 Instruction Type:Patient Education How to access health information online Indication:Right upper quadrant pain Start: 8 Instruction Type:Patient Education How to access health information online - Detail Indication:Right upper quadrant pain Start: 8 Instruction Type:Patient Education Patient Instructions Indication:Right upper quadrant pain Start: 8 Instruction Type:Provider Instructions for Treatment How to access health information online Indication:Gastritis Start: 6 Instruction Type:Patient Education How to access health information online - Detail Indication:Gastritis Start: 6 Instruction Type:Patient Education Patient Instructions Indication:Gastritis Start: 6 Instruction Type:Provider Instructions for Treatment Patient Instructions Indication:Abdominal pain, acute, right upper quadrant Start:26-Jun-2014 Instruction Type:Provider Instructions for Treatment [facility]; [facility] Work Phone: Instructions Note Date & Type Note Facility Instructions Name Patient Instructions Indication:Nonsmoker Start: 2 Instruction Type:Provider Instructions for Treatment How to Access Health Information Online using Patient Portal and [employer] Apps Indication:Nonsmoker Start: 2 Instruction Type:Patient Education Patient Instructions Indication:BMI 31.0-31.9,adult Start: 2 Instruction Type:Provider Instructions for Treatment How to Access Health Information Online using Patient Portal and [employer] Apps Indication:BMI 31.0-31.9,adult Start: 2 Instruction Type:Patient Education How to access health information online Indication:Right upper quadrant pain Start: 8 Instruction Type:Patient Education How to access health information online - Detail Indication:Right upper quadrant pain Start: 8 Instruction Type:Patient Education Patient Instructions Indication:Right upper quadrant pain Start: 8 Instruction Type:Provider Instructions for Treatment How to access health information online Indication:Gastritis Start: 6 Instruction Type:Patient Education How to access health information online - Detail Indication:Gastritis Start: 6 Instruction Type:Patient Education Patient Instructions Indication:Gastritis Start: 6 Instruction Type:Provider Instructions for Treatment Patient Instructions Indication:Abdominal pain, acute, right upper quadrant Start:26-Jun-2014 Instruction Type:Provider Instructions for Treatment [facility]; [facility] Work Phone: Instructions Note Date & Type Note Facility Instructions Name Patient Instructions Indication:Nonsmoker Start: 2 Instruction Type:Provider Instructions for Treatment How to Access Health Information Online using Patient Portal and [employer] Apps Indication:Nonsmoker Start: 2 Instruction Type:Patient Education Patient Instructions Indication:BMI 31.0-31.9,adult Start: 2 Instruction Type:Provider Instructions for Treatment How to Access Health Information Online using Patient Portal and [employer] Apps Indication:BMI 31.0-31.9,adult Start: 2 Instruction Type:Patient Education How to access health information online Indication:Right upper quadrant pain Start: 8 Instruction Type:Patient Education How to access health information online - Detail Indication:Right upper quadrant pain Start: 8 Instruction Type:Patient Education Patient Instructions Indication:Right upper quadrant pain Start: 8 Instruction Type:Provider Instructions for Treatment How to access health information online Indication:Gastritis Start: 6 Instruction Type:Patient Education How to access health information online - Detail Indication:Gastritis Start: 6 Instruction Type:Patient Education Patient Instructions Indication:Gastritis Start: 6 Instruction Type:Provider Instructions for Treatment Patient Instructions Indication:Abdominal pain, acute, right upper quadrant Start:26-Jun-2014 Instruction Type:Provider Instructions for Treatment [facility]; [facility] Work Phone: Instructions Name Dates Details How to access health informa tion online Indication:Right upper quadrant pain Start:04-Mar-2017 Instruction Type:Patient Education How to access health informa tion online - Detail Indication:Right upper quadrant pain Start:04-Mar-2017 Instruction Type:Patient Education Patient Instructions Indication:Right upper quadrant pain Start:04-Mar-2017 Instruction Type:Provider Instructions for Treatment How to access health informa tion online Indication:Gastritis Start:20-Apr-2015 Instruction Type:Patient Education How to access health informa tion online - Detail Indication:Gastritis Start:20-Apr-2015 Instruction Type:Patient Education Patient Instructions Indication:Gastritis Start:20-Apr-2015 Instruction Type:Provider Instructions for Treatment Patient Instructions Indication:Abdominal pain, acute, right upper quadrant Start:26-Jun-2014 Instruction Type:Provider Instructions for Treatment Name Dates Details How to access health informa tion online Indication:Right upper quadrant pain Start:04-Mar-2017 Instruction Type:Patient Education How to access health informa tion online - Detail Indication:Right upper quadrant pain Start:04-Mar-2017 Instruction Type:Patient Education Patient Instructions Indication:Right upper quadrant pain Start:04-Mar-2017 Instruction Type:Provider Instructions for Treatment How to access health informa tion online Indication:Gastritis Start:20-Apr-2015 Instruction Type:Patient Education How to access health informa tion online - Detail Indication:Gastritis Start:20-Apr-2015 Instruction Type:Patient Education Patient Instructions Indication:Gastritis Start:20-Apr-2015 Instruction Type:Provider Instructions for Treatment Patient Instructions Indication:Abdominal pain, acute, right upper quadrant Start:26-Jun-2014 Instruction Type:Provider Instructions for Treatment Summary Purpose Family History No Family History Records FoundNo Family History Records FoundNo Family History Records Found Advance Directives No Advanced Directives Records Found Advance Directive Response Recorded Date/ Time Advance Directives Yes June 29, 2014 9:43am Living Will No November 06, 2021 3:45am Power of Grants Director No October 3:45am Chief Complaint and Reason for Visit Chief Complaint flank pain Additional Source Comments INFORMATION SOURCE (unrecogn ized section and content) DATE CREATED AUTHOR 10/23/2021 [facility] DATE CREATED AUTHOR AUTHOR'S ORGANIZ ATION 12/25/2021 [facility] DATE CREATED AUTHOR AUTHOR'S ORGANIZ ATION 06/29/2024 [facility] Goals (unrecognized section and content) Goals may be documented in a n alternate section FOR RECORDS PERTAINING TO PATIENTS WHO ARE OR HAVE BEEN ENROLLED IN A CHEMICAL DEPENDENCY/SUBSTANCEABUSE PROGRAM, SOME INFORMATION MAY BE OMITTED. This clinical summary was aggregated from multiple sources. Caution should be exercised in using it in the provision of clinical care. This summary normalizes information from multiple sources, and as a consequence, information in this document may materially change the coding, format and clinical context of patient data. In addition, data may be omitted in some cases. CLINICAL DECISIONS SHOULD BE BASED ON THE PRIMARY CLINICAL RECORDS. [employer] [facility]. provides no warranty or guarantee of the accuracy or completeness of information in this document.
[2025-01-28 19:26] VITALS: BP 122/75; PULSE 78; RESP 16; TEMP 36.8; O2SAT 100
== END 2025-01-28 19:27 | disposition home or self-care (01) ==
PROVIDERS: Emergency Provider Emergency Medicine; PCP Internal Medicine; Visit Provider Emergency Medicine
DX: S70.12XA Contusion of left thigh, initial encounter (principal); X58.XXXA Exposure to other specified factors, initial encounter; Y93.89 Activity, other specified; Z90.49 Acquired absence of other specified parts of digestive tract
CPT/HCPCS: 99282